=== PATIENT | female | born 1935 | race Caucasian/White ===

== ENCOUNTER 2016-11-08 17:57 | Emergency (ER) | payer MEDICARE, OTHER ==
--- NOTE | 2016-11-08 18:25 | ED.PDOC ---
History of Present Illness - General Chief Complaint: General Stated Complaint: rib and chest pain Time Seen by Provider: 11/08/16 18:22 Source: patient, RN notes reviewed, Vital Signs reviewed Exam Limitations: no limitations - History of Present Illness Initial Comments: patient stated that he had been having dull RUQ pain for 2 days radiating to right side of her back aggravated during coughing episode and deep breaths,no diaphoresis,no sob,no n/v,not aggravated by food intake. Timing/Duration: other - 2 days ago Severity: moderate Improving Factors: nothing Worsening Factors: nothing, movement, other - cugh and taking deep breaths Allergies/Adverse Reactions: Allergies NO KNOWN ALLERGY Allergy (Verified 10/20/15 17:17) Home Medications: Ambulatory Orders Levothyroxine Sodium [Synthroid] 50 mcg PO TENISHA-OTH-DAY 01/11/15 Levothyroxine Sodium [Synthroid] 75 mcg PO TENISHA-OTH-DAY 01/11/15 Zolpidem Tartrate [Ambien] 5 mg PO BEDTIME 01/11/15 Acyclovir [Zovirax] 400 mg PO BID 02/02/16 Dexamethasone 20 mg PO SUMOTUSA 02/02/16 Ondansetron [Zuplenz] 8 mg PO Q8H PRN 02/02/16 Sulfa/Trimeth 800/160 (Ds) Tab [Bactrim DS] 1 ea PO TUSA 02/02/16 Acetamin W/Cod #3 Tab [Tylenol w/CODEINE #3] 1 ea PO Q6H PRN #30 tab 02/03/16 Cyclobenzaprine HCl [Flexeril] 5 mg PO Q8HR PRN #15 tab 02/03/16 Review of Systems - Review of Systems Constitutional: States: no symptoms reported EENTM: States: no symptoms reported Respiratory: States: cough - non productive Cardiology: States: no symptoms reported Gastrointestinal/Abdominal: States: see HPI Genitourinary: States: other - recurrent uti Musculoskeletal: States: other - bone pain history of multiple myeloma Skin: States: no symptoms reported Neurological: States: no symptoms reported Endocrine: States: no symptoms reported Hematologic/Lymphatic: States: 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 Past Medical History (General) - Patient Medical History Hx Seizures: No Hx Stroke: No Hx Dementia: No Hx Asthma: No Hx of COPD: No Hx Cardiac Disorders: Yes - hx murmor Hx Congestive Heart Failure: No Hx Pacemaker: No Hx Hypertension: No Hx Thyroid Disease: Yes Hx Diabetes: No Hx Gastroesophageal Reflux: No Hx Renal Disease: No Hx Cancer: Yes - multiple myeloma Hx of HIV: No Hx Hepatitis C: No Hx MRSA: No Surgical History: appendectomy, other - hernia repair,vein stripping , shoulder - Vaccination History Hx Influenza Vaccination: Yes Hx Pneumococcal Vaccination: Yes - Social History Hx Tobacco Use: No Hx Alcohol Use: No Hx Substance Use: No Hx Substance Use Treatment: No Hx Depression: No Family Medical History - Family History Mother Family History: No Known Living Status: Hx Cardiac Disease: Yes - CAD-dad Hx Family Cancer: Yes - Brain-mom Sister Living Status: Hx Family Cancer: Yes - breast cancer Physical Exam - Physical Exam General Appearance: Alert, Comfortable, No apparent distress Ears, Nose, Throat: hearing grossly normal, normal ENT inspection, normal pharynx Neck: non-tender, full range of motion, supple, normal inspection Respiratory: chest non-tender, lungs clear, no respiratory distress, no accessory muscle use Cardiovascular/Chest: normal peripheral pulses, regular rate, rhythm, no edema, systolic murmur Peripheral Pulses: radial,right: 2+, radial,left: 2+ Gastrointestinal/Abdominal: normal bowel sounds, soft, tenderness - RUQ including lower rib cage Back Exam: normal inspection, no CVA tenderness, no vertebral tenderness Extremity: normal range of motion, non-tender, normal inspection Neurologic: alert, normal mood/affect, oriented x 3 Skin Exam: normal color, warm/dry, cyanosis Lymphatic: no adenopathy Progress - Progress Progress: 11/08/16 21:39 11/08/16 18:30 EKG STAT 11/08/16 19:55 Hold Metformin x 48Hrs [id number] Laboratory Results WBC 22.6 K/mm3 (4.8-10.8) H* 11/08/16 18:40 RBC 3.94 M/mm3 (4.20-5.40) L 11/08/16 18:40 Hgb 12.1 gm/dL (12.0-16.0) 11/08/16 18:40 Hct 37.3 % (36.0-47.0) 11/08/16 18:40 MCV 94.6 fl (81.0-99.0) 11/08/16 18:40 MCH 30.7 pg (27.0-31.0) 11/08/16 18:40 MCHC 32.4 g/dL (33.0-37.0) L 11/08/16 18:40 RDW 13.9 % (11.5-14.5) 11/08/16 18:40 Plt Count 183 K/mm3 (130-400) 11/08/16 18:40 MPV 8.6 fl (7.40-10.4) 11/08/16 18:40 Absolute Neuts (auto) Not Reportable 11/08/16 18:40 Absolute Lymphs (auto) Not Reportable 11/08/16 18:40 Absolute Monos (auto) Not Reportable 11/08/16 18:40 Absolute Eos (auto) Not Reportable 11/08/16 18:40 Neutrophils % Not Reportable 11/08/16 18:40 Neutrophils % (Manual) 93.0 % 11/08/16 18:40 Lymphocytes % Not Reportable 11/08/16 18:40 Lymphocytes % (Manual) 5.0 % 11/08/16 18:40 Monocytes % Not Reportable 11/08/16 18:40 Monocytes % (Manual) 2.0 % 11/08/16 18:40 Eosinophils % Not Reportable 11/08/16 18:40 Basophils % Not Reportable 11/08/16 18:40 Platelet Estimate Normal (NORMAL) 11/08/16 18:40 Normal RBC Morphology Normal rbc morph 11/08/16 18:40 PT 11.7 SECONDS (9.4-12.5) 11/08/16 18:40 INR 1.040 11/08/16 18:40 PTT (SP) 24.9 SECONDS (25.1-36.5) L 11/08/16 18:40 Sodium 139 mmol/L (135-145) 11/08/16 18:40 Potassium 3.9 mmol/L (3.6-5.0) 11/08/16 18:40 Chloride 106 mmol/L (101-111) 11/08/16 18:40 Carbon Dioxide 29 mmol/L (21-31) 11/08/16 18:40 Anion Gap 7.9 (12-18) L 11/08/16 18:40 BUN 20 mg/dL (7-18) H 11/08/16 18:40 Creatinine 0.80 mg/dL (0.6-1.3) 11/08/16 18:40 BUN/Creatinine Ratio 25.0 (10-20) H 11/08/16 18:40 Random Glucose 169 mg/dL (70-105) H 11/08/16 18:40 Serum Osmolality 284.1 mOsm/L (275-295) 11/08/16 18:40 Lactic Acid 1.5 mmol/L (0.5-2.2) 11/08/16 18:40 Calcium 8.9 mg/dL (8.4-10.2) 11/08/16 18:40 Magnesium 2.6 mg/dL (1.8-2.5) H 11/08/16 18:40 Total Bilirubin 0.5 mg/dL (0.2-1.0) 11/08/16 18:40 Direct Bilirubin < 0.1 mg/dL (0-0.2) 11/08/16 18:40 Indirect Bilirubin 0.4 mg/dL (0.2-0.8) 11/08/16 18:40 AST 25 IU/L (10-42) 11/08/16 18:40 ALT 21 IU/L (10-60) 11/08/16 18:40 Alkaline Phosphatase 36 IU/L (42-121) L 11/08/16 18:40 Creatine Kinase 64 IU/L (26-140) 11/08/16 18:40 CK-MB (CK-2) 3.5 ng/mL (0.0-4.4) 11/08/16 18:40 CK-MB (CK-2) % Not Reportable 11/08/16 18:40 Troponin I < 0.02 ng/mL (0.01-0.05) 11/08/16 18:40 Serum Total Protein 7.8 gm/dL (6.4-8.2) 11/08/16 18:40 Albumin 3.9 g/dl (3.2-5.5) 11/08/16 18:40 Globulin Cancelled 11/08/16 18:40 Albumin/Globulin Ratio Cancelled 11/08/16 18:40 Urine Color Yellow (Yellow) 11/08/16 19:35 Urine Appearance Clear (Clear) 11/08/16 19:35 Urine pH 6.0 (4.5-7.8) 11/08/16 19:35 Ur Specific [place] 1.015 (1.005-1.030) 11/08/16 19:35 Urine Protein Negative mg/dL 11/08/16 19:35 Urine Glucose (UA) Negative mg/dL (Negative) 11/08/16 19:35 Urine Ketones Negative mg/dL (NEGATIVE) 11/08/16 19:35 Urine Blood Negative (Negative) 11/08/16 19:35 Urine Nitrite Negative 11/08/16 19:35 Urine Bilirubin Negative (NEGATIVE) 11/08/16 19:35 Urine Urobilinogen 0.2 mg/dL (0.2-1.0) 11/08/16 19:35 Ur Leukocyte Esterase Trace (Negative) H 11/08/16 19:35 Urine RBC 0-1 /hpf 11/08/16 19:35 Urine WBC 3-5 /hpf H 11/08/16 19:35 Ur Epithelial Cells 1-3 /hpf 11/08/16 19:35 Urine Bacteria Rare 11/08/16 19:35 11/08/16 21:43 Discus with patient and family lab result and normal ct abd/pelvis needed to keep appointment with primary md sunday - Results/Orders Results/Orders: 11/08/16 18:30 EKG STAT 11/08/16 19:55 Hold Metformin x 48Hrs [id number] Laboratory Results WBC 22.6 K/mm3 (4.8-10.8) H* 11/08/16 18:40 RBC 3.94 M/mm3 (4.20-5.40) L 11/08/16 18:40 Hgb 12.1 gm/dL (12.0-16.0) 11/08/16 18:40 Hct 37.3 % (36.0-47.0) 11/08/16 18:40 MCV 94.6 fl (81.0-99.0) 11/08/16 18:40 MCH 30.7 pg (27.0-31.0) 11/08/16 18:40 MCHC 32.4 g/dL (33.0-37.0) L 11/08/16 18:40 RDW 13.9 % (11.5-14.5) 11/08/16 18:40 Plt Count 183 K/mm3 (130-400) 11/08/16 18:40 MPV 8.6 fl (7.40-10.4) 11/08/16 18:40 Absolute Neuts (auto) Not Reportable 11/08/16 18:40 Absolute Lymphs (auto) Not Reportable 11/08/16 18:40 Absolute Monos (auto) Not Reportable 11/08/16 18:40 Absolute Eos (auto) Not Reportable 11/08/16 18:40 Neutrophils % Not Reportable 11/08/16 18:40 Neutrophils % (Manual) 93.0 % 11/08/16 18:40 Lymphocytes % Not Reportable 11/08/16 18:40 Lymphocytes % (Manual) 5.0 % 11/08/16 18:40 Monocytes % Not Reportable 11/08/16 18:40 Monocytes % (Manual) 2.0 % 11/08/16 18:40 Eosinophils % Not Reportable 11/08/16 18:40 Basophils % Not Reportable 11/08/16 18:40 Platelet Estimate Normal (NORMAL) 11/08/16 18:40 Normal RBC Morphology Normal rbc morph 11/08/16 18:40 PT 11.7 SECONDS (9.4-12.5) 11/08/16 18:40 INR 1.040 11/08/16 18:40 PTT (SP) 24.9 SECONDS (25.1-36.5) L 11/08/16 18:40 Sodium 139 mmol/L (135-145) 11/08/16 18:40 Potassium 3.9 mmol/L (3.6-5.0) 11/08/16 18:40 Chloride 106 mmol/L (101-111) 11/08/16 18:40 Carbon Dioxide 29 mmol/L (21-31) 11/08/16 18:40 Anion Gap 7.9 (12-18) L 11/08/16 18:40 BUN 20 mg/dL (7-18) H 11/08/16 18:40 Creatinine 0.80 mg/dL (0.6-1.3) 11/08/16 18:40 BUN/Creatinine Ratio 25.0 (10-20) H 11/08/16 18:40 Random Glucose 169 mg/dL (70-105) H 11/08/16 18:40 Serum Osmolality 284.1 mOsm/L (275-295) 11/08/16 18:40 Lactic Acid 1.5 mmol/L (0.5-2.2) 11/08/16 18:40 Calcium 8.9 mg/dL (8.4-10.2) 11/08/16 18:40 Magnesium 2.6 mg/dL (1.8-2.5) H 11/08/16 18:40 Total Bilirubin 0.5 mg/dL (0.2-1.0) 11/08/16 18:40 Direct Bilirubin < 0.1 mg/dL (0-0.2) 11/08/16 18:40 Indirect Bilirubin 0.4 mg/dL (0.2-0.8) 11/08/16 18:40 AST 25 IU/L (10-42) 11/08/16 18:40 ALT 21 IU/L (10-60) 11/08/16 18:40 Alkaline Phosphatase 36 IU/L (42-121) L 11/08/16 18:40 Creatine Kinase 64 IU/L (26-140) 11/08/16 18:40 CK-MB (CK-2) 3.5 ng/mL (0.0-4.4) 11/08/16 18:40 CK-MB (CK-2) % Not Reportable 11/08/16 18:40 Troponin I < 0.02 ng/mL (0.01-0.05) 11/08/16 18:40 Serum Total Protein 7.8 gm/dL (6.4-8.2) 11/08/16 18:40 Albumin 3.9 g/dl (3.2-5.5) 11/08/16 18:40 Globulin Cancelled 11/08/16 18:40 Albumin/Globulin Ratio Cancelled 11/08/16 18:40 Urine Color Yellow (Yellow) 11/08/16 19:35 Urine Appearance Clear (Clear) 11/08/16 19:35 Urine pH 6.0 (4.5-7.8) 11/08/16 19:35 Ur Specific [place] 1.015 (1.005-1.030) 11/08/16 19:35 Urine Protein Negative mg/dL 11/08/16 19:35 Urine Glucose (UA) Negative mg/dL (Negative) 11/08/16 19:35 Urine Ketones Negative mg/dL (NEGATIVE) 11/08/16 19:35 Urine Blood Negative (Negative) 11/08/16 19:35 Urine Nitrite Negative 11/08/16 19:35 Urine Bilirubin Negative (NEGATIVE) 11/08/16 19:35 Urine Urobilinogen 0.2 mg/dL (0.2-1.0) 11/08/16 19:35 Ur Leukocyte Esterase Trace (Negative) H 11/08/16 19:35 Urine RBC 0-1 /hpf 11/08/16 19:35 Urine WBC 3-5 /hpf H 11/08/16 19:35 Ur Epithelial Cells 1-3 /hpf 11/08/16 19:35 Urine Bacteria Rare 11/08/16 19:35 - EKG/XRAY/CT CT: abd/pelvis w/contrast no acute pathology Departure - Departure Clinical Impression: Abdominal pain, RUQ, History of multiple myeloma, Neutrophilic leukocytosis Time of Disposition: 21:35 Disposition: Discharge to Home or Self Care Condition: Good Departure Forms: ED Discharge - Pt. Copy, Patient Portal Self Enrollment Instructions: DI for Abdominal Pain-Adult Referrals: Aleksey Contreras MD [Primary Care Provider] - 1-2 Weeks Home Medications: Ambulatory Orders Levothyroxine Sodium [Synthroid] 50 mcg PO TENISHA-OTH-DAY 01/11/15 Levothyroxine Sodium [Synthroid] 75 mcg PO TENISHA-OTH-DAY 01/11/15 Zolpidem Tartrate [Ambien] 5 mg PO BEDTIME 01/11/15 Acyclovir [Zovirax] 400 mg PO BID 02/02/16 Dexamethasone 20 mg PO SUMOTUSA 02/02/16 Ondansetron [Zuplenz] 8 mg PO Q8H PRN 02/02/16 Sulfa/Trimeth 800/160 (Ds) Tab [Bactrim DS] 1 ea PO TUSA 02/02/16 Acetamin W/Cod #3 Tab [Tylenol w/CODEINE #3] 1 ea PO Q6H PRN #30 tab 02/03/16 Cyclobenzaprine HCl [Flexeril] 5 mg PO Q8HR PRN #15 tab 02/03/16 Additional Instructions: RETURN TO EMERGENCY ROOM NEEDED;KEEP APPOINTMENT WITH PRIMARY MD THIS COMING SUNDAY
--- NOTE | 2016-11-08 18:56 | RAD ---
EXAM DESCRIPTION: X-RAY CHEST- One View CLINICAL HISTORY: Chest pain COMPARISON: 02/10/2016 TECHNIQUE: Single view of the chest. FINDINGS: There are no discrete air space infiltrates, pneumothoraces or pleural effusions. The pulmonary vascularity is normal. The cardiomediastinal silhouette is unremarkable. IMPRESSION: There are no acute lung parenchymal findings. Electronically signed by: Seth Pete MD 11/08/2016 18:54
--- NOTE | 2016-11-08 20:58 | CT ---
EXAM DESCRIPTION: CT ABDOMEN PELVIS WITH IV CONTRAST CLINICAL HISTORY: 81-year-old female with complaint of upper abdomen and lower rib pain. COMPARISON: None. TECHNIQUE: CT of the abdomen and pelvis was performed following intravenous administration of contrast. Oral contrast was not administered. Multiplanar reformatted images were provided. FINDINGS: Examination findings are limited secondary to delayed phase only of CT examination limiting assessment for solid organ pathology. Contrast opacifies the bilateral renal collecting system. Chest: Evaluation through the lung bases reveals no focal opacity, pleural effusion or pneumothorax. Heart size is within normal limits. No pericardial effusion. Abdomen and pelvis: The liver, gallbladder, pancreas, spleen, bilateral kidneys and bilateral adrenal glands are within normal limits. Coarse calcification within the inferior pole of the left kidney and superior pole, a nonspecific finding which may reflect sequela of prior injury. The vessels reveal mild atherosclerotic change otherwise within normal limits of caliber. Patency cannot be determined given lack of contrast opacification of the vessels. No abdominopelvic lymph nodes are noted to be pathologically enlarged by CT measurement criteria. The bowel is within normal limits with large volume of fecal debris present throughout the large bowel. There is no abnormal bowel wall thickness or bowel dilation. No free air. No free abdominopelvic fluid collections. The appendix is within normal limits. The bladder is diffusely enlarged. The osseous structures reveal diffuse demineralization and degenerative change. Callus formation of the left/superior inferior pubic ramus compatible with sequela of prior trauma and nonunion. IMPRESSION: 1. No specific acute intra-abdominal findings are noted to suggest etiology of the patient's abdominal pain. 2. Delayed phase only imaging performed limiting assessment for solid organ pathology. 3. Large volume of fecal debris present throughout the large bowel raising the question of fecal stasis, constipation. Electronically signed by: Robyn Mcconnell MD 11/08/2016 20:55
[2016-11-08] MEDS ORDERED: fentaNYL CITRATE INJ 50 MCG/ML AMP IV ONE (21:26)
[2016-11-08 22:14] VITALS: BP 143/70; TEMP 97.8; O2SAT 97
== END 2016-11-08 22:14 | disposition home or self-care (01) ==
LOC: ER 17:57
DX: R10.11 Right upper quadrant pain (principal); D72.828 Other elevated white blood cell count; C90.00 Multiple myeloma not having achieved remission; E07.9 Disorder of thyroid, unspecified; Z80.8 Family history of malignant neoplasm of other organs or systems; Z80.3 Family history of malignant neoplasm of breast; Z82.49 Family history of ischemic heart disease and other diseases of the circulatory system; Z79.899 Other long term (current) drug therapy

== ENCOUNTER → 2016-11-23 | Outpatient (CLI) | payer MEDICARE | LOC: BFHH 13:07 | PROVIDERS: ATTEND Family Medicine | DX: E03.9 Hypothyroidism, unspecified (principal) ==

== ENCOUNTER 2017-01-19 23:04 | Emergency (ER) | payer MEDICARE ==
[2017-01-20] MEDS ORDERED: SODIUM CHLORIDE 0.9% 1000ML 1,000 ML IVS ONE (01:21)
--- NOTE | 2017-01-20 01:24 | RAD ---
Clinical History : fever , MAIN Exam : PA and lateral views of the chest 01/20/2017 12:46 AM CDT Comparisons : CT chest with contrast October 20, 2015 Portable AP view of the chest November 08, 2016 Findings : The lungs are clear without focal consolidation or pleural effusion. The heart is normal in size. The mediastinal contours are normal in appearance. The thoracic spine is age appropriate. The shoulders are unremarkable. Limited evaluation of the upper abdomen demonstrates no gross abnormalities. Impression: No acute cardiopulmonary disease (stable appearing chest). Electronically signed by: Anibal Olsen MD 01/20/2017 1:23 AM CDT
[2017-01-20] MEDS ORDERED: levoFLOXacin 500MG IV 500 MG in PREMIX BAG 1 BAG IVPB ONE (01:30)
[2017-01-20] MEDS ORDERED: levoFLOXacin 500MG IV 100 ML IVPB ONE (01:37)
--- NOTE | 2017-01-20 01:51 | ED.PDOC ---
History of Present Illness - General Chief Complaint: Problem Stated Complaint: fevers, minimal, confusion Time Seen by Provider: 01/20/17 00:41 Source: patient, family Exam Limitations: other - dementia of patient - History of Present Illness Initial Comments: Patient presents with fever since this afternoon. She has end state multiple myeloma diagnosed 9 months ago with last chemtx today. She has a hx of chronic UTI so her daughter thought she may have that. She has not been urinating much. The patient has no complaints. Denies any pain. No dyspnea has been noticed by either of them. No cough. Her daughter thinks that this is the first time she has had a fever since her diagnosis. Her mental status declined abruptly today. This morning, the patient was at baseline and was "sharp" and not confused. No other complaints or information available. Timing/Duration: 4-6 hours Severity: moderate Improving Factors: nothing Worsening Factors: nothing Associated Symptoms: denies symptoms Allergies/Adverse Reactions: Allergies NO KNOWN ALLERGY Allergy (Verified 10/20/15 17:17) Home Medications: Ambulatory Orders Levothyroxine Sodium [Synthroid] 50 mcg PO TENISHA-OTH-DAY 01/11/15 Levothyroxine Sodium [Synthroid] 75 mcg PO TENISHA-OTH-DAY 01/11/15 Zolpidem Tartrate [Ambien] 5 mg PO BEDTIME 01/11/15 Acyclovir [Zovirax] 400 mg PO BID 02/02/16 Dexamethasone 20 mg PO SUMOTUSA 02/02/16 Ondansetron [Zuplenz] 8 mg PO Q8H PRN 02/02/16 Sulfa/Trimeth 800/160 (Ds) Tab [Bactrim DS] 1 ea PO TUSA 02/02/16 Acetamin W/Cod #3 Tab [Tylenol w/CODEINE #3] 1 ea PO Q6H PRN #30 tab 02/03/16 Cyclobenzaprine HCl [Flexeril] 5 mg PO Q8HR PRN #15 tab 02/03/16 Review of Systems - Review of Systems Constitutional: States: see HPI EENTM: States: no symptoms reported Respiratory: States: no symptoms reported Cardiology: States: no symptoms reported Gastrointestinal/Abdominal: States: no symptoms reported Genitourinary: States: no symptoms reported Musculoskeletal: States: see HPI Skin: States: no symptoms reported Neurological: States: no symptoms reported Endocrine: States: no symptoms reported Hematologic/Lymphatic: States: see HPI Past Medical History (General) - Patient Medical History Hx Seizures: No Hx Stroke: No Hx Dementia: No Hx Asthma: No Hx of COPD: No Hx Cardiac Disorders: Yes - hx murmor Hx Congestive Heart Failure: No Hx Pacemaker: No Hx Hypertension: No Hx Thyroid Disease: Yes Hx Diabetes: No Hx Gastroesophageal Reflux: No Hx Renal Disease: No Hx Cancer: Yes - multiple myeloma Hx of HIV: No Hx Hepatitis C: No Hx MRSA: No Surgical History: other - Vaccination History Hx Influenza Vaccination: Yes Hx Pneumococcal Vaccination: Yes - Social History Hx Tobacco Use: No Hx Alcohol Use: No Hx Substance Use: No Hx Substance Use Treatment: No Hx Depression: No Family Medical History - Family History Mother Family History: No Known Living Status: Hx Cardiac Disease: Yes - CAD-dad Hx Family Cancer: Yes - Brain-mom Sister Living Status: Hx Family Cancer: Yes - breast cancer Physical Exam - Physical Exam General Appearance: Other - confused Ears, Nose, Throat: normal ENT inspection Neck: non-tender, full range of motion, supple Respiratory: lungs clear Cardiovascular/Chest: normal peripheral pulses, tachycardia Gastrointestinal/Abdominal: normal bowel sounds, non tender, soft Back Exam: normal inspection, no CVA tenderness Extremity: no pedal edema Neurologic: no motor/sensory deficits, other - oriented to name only Skin Exam: normal color Lymphatic: no adenopathy Progress - Progress Progress: 01/20/17 01:53 wbc wnl but that would be as expected with her multiple myeloma. Decreased lymphocyte count. differential 87% neutrophils. UA unremarkable. CXR unremarkable. Blood cultures drawn. Levaquin 500 mg IV x one started. NS one liter IV bolus x one. Second liter to start en route. Lactic acid 1.5. Patient accepted at [facility] where her oncologist, Dr. Davis practices. 01/20/17 01:54 Departure - Departure Clinical Impression: Fever with chills, Multiple myeloma Disposition: Transfer to Hospital Condition: Fair Departure Forms: ED Discharge - Pt. Copy, Patient Portal Self Enrollment Diet: other - as per hospitalist Activity: other - as per hospitalist Home Medications: Ambulatory Orders Levothyroxine Sodium [Synthroid] 50 mcg PO TENISHA-OTH-DAY 01/11/15 Levothyroxine Sodium [Synthroid] 75 mcg PO TENISHA-OTH-DAY 01/11/15 Zolpidem Tartrate [Ambien] 5 mg PO BEDTIME 01/11/15 Acyclovir [Zovirax] 400 mg PO BID 02/02/16 Dexamethasone 20 mg PO SUMOTUSA 02/02/16 Ondansetron [Zuplenz] 8 mg PO Q8H PRN 02/02/16 Sulfa/Trimeth 800/160 (Ds) Tab [Bactrim DS] 1 ea PO TUSA 02/02/16 Acetamin W/Cod #3 Tab [Tylenol w/CODEINE #3] 1 ea PO Q6H PRN #30 tab 02/03/16 Cyclobenzaprine HCl [Flexeril] 5 mg PO Q8HR PRN #15 tab 02/03/16
[2017-01-20 01:59] VITALS: BP 122/70; TEMP 99.7; O2SAT 94
== END 2017-01-20 02:20 | disposition short-term general hospital (02) ==
LOC: ER 23:04
DX: C90.00 Multiple myeloma not having achieved remission (principal); R50.81 Fever presenting with conditions classified elsewhere; E07.9 Disorder of thyroid, unspecified; R01.1 Cardiac murmur, unspecified; Z87.440 Personal history of urinary (tract) infections; Z79.899 Other long term (current) drug therapy

== ENCOUNTER → 2017-04-19 | Outpatient (CLI) | payer MEDICARE | END | disposition home or self-care (01) | LOC: BFHH 11:38 | PROVIDERS: ATTEND Internal Medicine Hematology & Oncology | DX: C90.00 Multiple myeloma not having achieved remission (principal); E09.9 Drug or chemical induced diabetes mellitus without complications; D69.6 Thrombocytopenia, unspecified ==

== ENCOUNTER → 2017-07-19 | Outpatient (CLI) | payer MEDICARE | END | disposition home or self-care (01) | LOC: GMAJ 16:40 | PROVIDERS: ATTEND Family Medicine | DX: E03.9 Hypothyroidism, unspecified (principal) ==

== ENCOUNTER → 2018-08-26 | Outpatient (CLI) | payer MEDICARE | LOC: GMAJ 14:51 | PROVIDERS: ATTEND Family Medicine | DX: E03.9 Hypothyroidism, unspecified (principal) ==

== ENCOUNTER 2018-12-10 21:14 | Inpatient (IN) | payer MEDICARE ==
--- NOTE | 2018-12-10 22:16 | RAD ---
EXAM DESCRIPTION: Chest,1 View CLINICAL HISTORY: 83 years Female, cough, congestion Comparison: 01/20/2017 and 11/08/2016 FINDINGS: Single AP view of the chest Cardiomediastinal silhouette is within normal limits. No focal lung consolidation. No pleural effusion. No pneumothorax. Again noted, right humeral suture anchor. IMPRESSION: Negative for lung consolidate. Electronically signed by: Nelia Reynolds MD 12/10/2018 10:14 PM TONG SETTER
[2018-12-10] MEDS ORDERED: ACETAMINOPHEN 500 MG TAB PO ONE (23:32)
--- NOTE | 2018-12-11 00:27 | ED.PDOC ---
History of Present Illness - General Chief Complaint: Respiratory Problem Stated Complaint: fever, cough, congestion, altered mental Time Seen by Provider: 12/10/18 21:29 Source: patient, family Exam Limitations: no limitations - History of Present Illness Comments: 3 D H/O FEVERS, COUGH, CONGESTION. AMS TODAY. AT BASELINE, THE PT DRIVES HERSELF AND MAKES LUCID CONVERSATION. Timing/Duration: getting worse Cough Quality/Degree: mild Possible Cause: illness exposure Improving Factors: nothing Worsening Factors: movement Associated Symptoms: cough, fever/chills Respiratory Risk Factors: exposure to illness Allergies/Adverse Reactions: Allergies NO KNOWN ALLERGY Allergy (Verified 12/11/18 01:02) Home Medications: Ambulatory Orders Levothyroxine Sodium [Synthroid] 50 mcg PO TENISHA-OTH-DAY 01/11/15 Levothyroxine Sodium [Synthroid] 75 mcg PO TENISHA-OTH-DAY 01/11/15 Zolpidem Tartrate [Ambien] 5 mg PO BEDTIME 01/11/15 Acyclovir [Zovirax] 400 mg PO BID 02/02/16 Dexamethasone 20 mg PO SUMOTUSA 02/02/16 Ondansetron [Zuplenz] 8 mg PO Q8H PRN 02/02/16 Sulfa/Trimeth 800/160 (Ds) Tab [Bactrim DS] 1 ea PO TUSA 02/02/16 Acetamin W/Cod #3 Tab [Tylenol w/CODEINE #3] 1 ea PO Q6H PRN #30 tab 02/03/16 Cyclobenzaprine HCl [Flexeril] 5 mg PO Q8HR PRN #15 tab 02/03/16 Review of Systems - Review of Systems Constitutional: States: fever, malaise, weakness EENTM: Denies: ear pain, nose congestion, throat pain Respiratory: States: cough. Denies: short of breath, wheezing Cardiology: Denies: chest pain, palpitations Gastrointestinal/Abdominal: Denies: abdominal pain, nausea Genitourinary: Denies: dysuria, frequency Musculoskeletal: Denies: back pain, joint pain, muscle pain Skin: States: no symptoms reported Neurological: States: other - AMS PER FAMILY. NO NECK ACHE. . Denies: headache Endocrine: States: no symptoms reported Hematologic/Lymphatic: States: no symptoms reported All other Systems: Reviewed and Negative Past Medical History (General) - Patient Medical History Hx Seizures: No Hx Stroke: No Hx Dementia: No Hx Asthma: No Hx of COPD: No Hx Cardiac Disorders: Yes - hx murmor Hx Congestive Heart Failure: No Hx Pacemaker: No Hx Hypertension: No Hx Thyroid Disease: Yes Hx Diabetes: No Hx Gastroesophageal Reflux: No Hx Renal Disease: No Hx Cancer: Yes - multiple myeloma Hx of HIV: No Hx Hepatitis C: No Hx MRSA: No - Vaccination History Hx Influenza Vaccination: Yes Hx Pneumococcal Vaccination: Yes - Social History Hx Tobacco Use: No Hx Alcohol Use: No Hx Substance Use: No Hx Substance Use Treatment: No Hx Depression: No Family Medical History - Family History Mother Family History: No Known Living Status: Hx Cardiac Disease: Yes - CAD-dad Hx Family Cancer: Yes - Brain-mom Sister Living Status: Hx Family Cancer: Yes - breast cancer Physical Exam - Physical Exam General Appearance: Alert, Frail Eye Exam: bilateral normal ENT Exam: normal ENT inspection, hearing grossly normal, TMs normal, pharynx normal Neck: non-tender, full range of motion, supple, normal inspection, trachea midline Respiratory: chest non-tender, no respiratory distress, no accessory muscle use, rhonchi - VERY FAINT Cardiovascular/Chest: no edema, no gallop, no JVD, no murmur, other - REGULAR S1S2, TACHYCARDIC Gastrointestinal/Abdominal: normal bowel sounds, non tender, soft, no organomegaly Extremity: normal range of motion, normal inspection, no pedal edema, no calf tenderness Neurologic: accounting assistant II-XII nml as tested, no motor/sensory deficits, normal mood/affect, other - AWAKE. O X 1 (ONLY TO LOCATION) Skin Exam: normal color, warm/dry Lymphatic: no adenopathy Progress - Progress Progress: 12/11/18 01:22 ACUTE AMS FEBRILE COUGH/CONGESTION HYPOXIA (88% RA, 96% 4LNC) CXR NEG. CMP NEG. BNP NEB. UA NEG. BCX PENDING. FLU NEG BUT 6 OTHER FAMILY MEMBERS POS. CBC WBC 11.6, NEUTS HIGH. FAINT RONCHI. TEMP 102.8. SATS LOW (NO H/O COPD OR SMOKING) I DO NOT HAVE A CLEAR RESPIRATORY SOURCE BUT IT IS A RESPIRATORY IFXN. POSSIBLY VIRAL BUT WILL COVER FOR CAP WITH ROCEPHIN AND AZITHRO. LIKELY FALSE NEG ON FLU WITH 6 FAMILY POS, THUS WILL COVER WITH TAMIFLU. GIVEN HER HYPOXIA AND ADVANCED AGE, SHE IS NOT SAFE FOR DC AND NEEDS ADMISSION. 12/11/18 01:26 I D/W [facility], HOSPITALIST, WHO ACCEPTED ADMISSION. THANK YOU [facility] FOR ACCEPTING CARE OF THIS PT. 12/11/18 01:28 Departure - Departure Clinical Impression: Lower respiratory infection (e.g., bronchitis, pneumonia, pneumonitis, pulmonitis), Febrile illness, acute, Cough, Hypoxia, Neutrophilic leukocytosis, Tachycardia with heart rate 100-120 beats per minute Altered mental status Qualifiers: Altered mental status type: delirium Qualified Code(s): R41.0 - Disorientation, unspecified Disposition: Admit Patient Condition: Fair Departure Forms: ED Discharge - Pt. Copy, Patient Portal Self Enrollment Referrals: Aleksey Contreras MD [Primary Care Provider] - 1-2 Weeks Home Medications: Ambulatory Orders Levothyroxine Sodium [Synthroid] 50 mcg PO TENISHA-OTH-DAY 01/11/15 Levothyroxine Sodium [Synthroid] 75 mcg PO TENISHA-OTH-DAY 01/11/15 Zolpidem Tartrate [Ambien] 5 mg PO BEDTIME 01/11/15 Acyclovir [Zovirax] 400 mg PO BID 02/02/16 Dexamethasone 20 mg PO SUMOTUSA 02/02/16 Ondansetron [Zuplenz] 8 mg PO Q8H PRN 02/02/16 Sulfa/Trimeth 800/160 (Ds) Tab [Bactrim DS] 1 ea PO TUSA 02/02/16 Acetamin W/Cod #3 Tab [Tylenol w/CODEINE #3] 1 ea PO Q6H PRN #30 tab 02/03/16 Cyclobenzaprine HCl [Flexeril] 5 mg PO Q8HR PRN #15 tab 02/03/16 Decision To Admit - Decistion To Admit Decision to Admit Reason: Admit from ER Decision to Admit Date: 12/11/18 Decision to Admit Time: 01:31
[2018-12-11] MEDS ORDERED: AZITHROMYCIN IV 500 MG in SODIUM CHLORIDE 0.9% 250ML 250 ML IVPB ONE (00:51)
[2018-12-11] MEDS ORDERED: cefTRIAXone SODIUM 1 GM in SODIUM CHL 0.9% 50ML MIN-BAG+ 50 ML IVPB ONE (00:51)
[2018-12-11] MEDS ORDERED: OSELTAMIVIR 75 MG CAP PO ONE (00:52)
[2018-12-11] MEDS ORDERED: cefTRIAXone SODIUM 1 GM VIAL ONE (01:26)
[2018-12-11] MEDS ORDERED: AZITHROMYCIN IV 500 MG VIAL IVPB ONE (01:26)
[2018-12-11] MEDS ORDERED: SODIUM CHL 0.9% 50ML MIN-BAG+ 50 ML IVPB ONE (01:27)
[2018-12-11] MEDS ORDERED: SODIUM CHLORIDE 0.9% 250ML 250 ML ONE (01:27)
--- NOTE | 2018-12-11 01:41 | HP ---
SUPERVISING PHYSICIAN: Jonah Lopez MD CHIEF COMPLAINT: Fever, confusion. HISTORY OF PRESENT ILLNESS: Ms. Parham is an 83-year-old female patient who presented to the Emergency Room with her family members who reported she has been having fevers on and off for the last 3 days including cough and congestion that she notes has become purulent in nature. On the date of admission to the ER, the patient was having some acute mental status changes from her baseline. When the patient is at baseline, she actually does drive herself and has no decreased mental capacity. She notes that about a week ago on Sunday, she started having fever and several family members had tested positive for flu. She was not seen, but treated [id number] and symptoms resolved until this past Sunday when she started feeling a little worse and progressively on Sunday to today when the patient started having acute mental status changes and noted to have a fever. She had a workup in the Emergency Room. CBC showed a mild leukocytosis with a left shift. Chemistry was within normal limits. Urinalysis showed no evidence of a urinary tract infection. Vital signs in the Emergency Room did show she was running a fever of 102.8 initially on presentation. She was maintaining O2 saturations on 2 liters nasal cannula at 93%. Chest x-ray per radiologic interpretation was without any consolidative processes. The patient does have a history of multiple myeloma that is currently in remission. Given that she does have immunocompromising comorbidities including multiple myeloma and the fact that she has been previously around family members with the patient flu, a flu swab was completed and initially found to be negative for A and B by PCR. Given the patient's comorbidities, high temperature and flu-like illness, there was a concern that the patient was developing influenza pneumonia or a possibly a secondary bacterial pneumonia process from previous upper respiratory infection. Dr. Bright, the Emergency Room physician, requested the patient be admitted for further treatment and evaluation. She was admitted in stable condition. PAST MEDICAL HISTORY: 1. Multiple myeloma diagnosed in 2016, followed by Dr. Negron, apparently in remission. 2. Hypothyroidism. 3. Chronic anemia. 4. Osteoporosis. 5. Chronic insomnia. 6. Dementia. 7. Peripheral neuropathy. PAST SURGICAL HISTORY: 1. Carpal tunnel release. 2. Tubal ligation. 3. Right shoulder surgery. 4. Breast biopsy. 5. Appendectomy. 6. Bilateral cataract extraction. CURRENT MEDICATIONS: 1. Bactrim DS 800/160 1 tablet every Sunday and Sunday 2. Synthroid 75 mcg daily. 3. Dexamethasone 8 mg every Sunday. 4. Acyclovir 400 mg b.i.d. 5. Tylenol No. 3, 1 q.6h. p.r.n. 6. Cymbalta 20 mg at bedtime. 7. Cilium 500, 0.52 grams b.i.d. 8. Morphine sulfate 30 mg p.o. q.2h. as needed. 9. Gabapentin 030 mg b.i.d. ALLERGIES: NO KNOWN DRUG ALLERGIES. FAMILY HISTORY: Noncontributory. SOCIAL HISTORY: She denies any tobacco, illicit drug or alcohol usage. The patient does live in [place]. She is . REVIEW OF SYSTEMS: CONSTITUTIONAL: Positive for fever, general malaise. Denies weight loss. HEENT: Positive for nasal congestion. Negative for earaches, sore throats. RESPIRATORY: Positive for cough, increasing productive sputum and shortness of breath. No wheezing. CARDIOVASCULAR: Negative for chest pain, palpitations or syncopal episodes. GASTROINTESTINAL: Negative for nausea or vomiting, diarrhea, constipation or abdominal pain. GENITOURINARY: Negative for dysuria, hematuria, polyuria. NEUROLOGIC: Negative for seizures, ataxia, syncopal episodes or other neurologic deficits. HEMATOLOGICAL: Positive for history of multiple myeloma apparently in remission. PHYSICAL EXAMINATION: VITAL SIGNS: Temperature 102.8. Pulse 119. Blood pressure 148/79. Respirations 22. Saturation 93% on nasal cannula at 4 liters. Admission weight 55.3 kg. GENERAL: On admission to the Medical/Surgical Floor, the patient is in apparent distress. She is alert and oriented and back to baseline levels of mentation per family. HEENT: Tympanic membranes clear bilaterally. Oropharynx is pink. Nares bilaterally were notably congested with clear nasal drainage. NECK: Supple, nontender with full range of motion. No jugular venous distention noted. RESPIRATORY: Lungs fairly clear except for notable rhonchi heard bilaterally, more so on the left than the right. No wheezing. CARDIOVASCULAR: Regular rate and rhythm without any appreciable murmurs, gallops, or rubs. ABDOMEN: Soft, nontender. Positive bowel sounds. EXTREMITIES: There is no cyanosis, clubbing or edema. NEUROLOGIC: The patient is alert and oriented times three. Facial features are symmetrical. Extraocular movements are within normal limits. Cranial nerves II- XII are grossly intact. LABORATORY: White count showed leukocytosis of 11,600, hemoglobin 14.3, hematocrit 43.7, platelet count 139,000. Differential did show a left shift. Chemistry showed normal electrolytes. BUN 12, creatinine 0.76. Liver functions all within normal limits. Albumin 3.7, chloride 3.5, serum total protein 7.2. Urinalysis was within normal limits. MICROBIOLOGY: Sputum culture pending. Blood cultures pending. Influenza A and B by PCR was negative. RADIOLOGY: Initial chest x-ray, single view, was without any acute findings per radiologic interpretation. No consolidative processes noted. ASSESSMENT: 1. Influenza like illness with developing influenza pneumonia, probable secondary bacterial pneumonia with concerns for Streptococcus pneumoniae. 2. Febrile illness, secondary to #1. 3. Leukocytosis, secondary to #1. 4. History of multiple myeloma, diagnosed in 2016, currently in remission, followed by Dr. Negron on corticosteroid therapy. 5. Osteoporosis. 6. Chronic insomnia. 7. Dementia. 8. Chronic peripheral neuropathies. PLAN: The patient is going to be admitted to the Medical/Surgical Floor for ongoing treatment of upper respiratory infection with concerns for developing influenza pneumonia and more likely bacterial secondary infection including pneumococcal pneumonia. She will be started on antiviral with Tamiflu as well as antibiotics of Rocephin and azithromycin. She will be on aggressive pulmonary hygiene with q.i.d. DuoNeb treatments. We will put her on DVT prophylaxis as per protocol. We will repeat labs and chest in the morning. We will anticipate her length of stay to be at least 2 to 3 days. Given the patient's advanced age and underlying comorbidities including multiple myeloma, she certainly is in an immunocompromised state and has recently been exposed to flu and is at risk for further complications. She will likely need aggressive care. Until she can transition to outpatient management, we will continue to monitor and treat as needed. #[id number] [facility]
[2018-12-11] MEDS ORDERED: MAGNESIUM HYDROXIDE 30 ML UD PO PRN (01:53)
[2018-12-11] MEDS ORDERED: ONDANSETRON INJ 4 MG/2 ML VIAL IV PRN (01:53)
[2018-12-11] MEDS ORDERED: ACETAMINOPHEN 325 MG TAB PO PRN (01:53)
[2018-12-11] MEDS ORDERED: ALBUTEROL SULFATE 2.5 MG/3 ML VIAL NEB PRN (01:53)
[2018-12-11] MEDS ORDERED: IV SET AND CAP CHANGE INJ INJ SCH (02:00)
[2018-12-11] MEDS: KCL 20MEQ/D5 1/2NS 1,000 ML IVS PRN ×2 (02:31→04:10)
[2018-12-11] MEDS: PANTOPRAZOLE SODIUM IV 40 MG VIAL IV SCH (06:35)
[2018-12-11] MEDS: IPRATROPIUM/ALBUTEROL 3 ML VIAL INH SCH ×4 (07:35→19:51)
[2018-12-11] MEDS: OSELTAMIVIR 75 MG CAP PO SCH ×2 (08:38→20:44)
[2018-12-11] MEDS ORDERED: DEXAMETHASONE 4 MG TAB PO SCH (11:30)
--- NOTE | 2018-12-11 13:48 | RAD ---
Study: Frontal and Lateral Radiographs of the Chest. Indication: Influenza pneumonia Comparison: December 10, 2018 Impression: Heart size normal. Atherosclerosis aorta. Emphysema. Subtle opacity in the peripheral aspect of the left mid to lower lung noted and is slightly more prominent than on the prior. This could reflect developing pneumonia. Short term follow-up recommended. Tiny left pleural effusion. No pneumothorax. Suture anchors right humeral head. Osteopenia. If this is a new finding, DEXA scan recommended as well as evaluation for possible osteoporosis treatment. Electronically signed by: Lizandro Burleson MD 12/11/2018 1:46 PM [employer]
[2018-12-11] MEDS: GABAPENTIN 300 MG CAP PO SCH ×2 (16:55→20:44)
[2018-12-11] MEDS ORDERED: LEVOTHYROXINE SODIUM 0.075 MG TAB ONE (19:23)
[2018-12-11] MEDS: ENOXAPARIN SODIUM 40 MG/0.4 ML SYG SUBCU SCH (20:43)
[2018-12-11] MEDS: SODIUM CHLORIDE 0.9% (FLUSH) 10 ML SYG IV PRN (20:43)
[2018-12-11] MEDS: PSYLLIUM 0.52 GM PO SCH (20:44)
[2018-12-11] MEDS: DULoxetine HCL 20 MG CAP PO SCH (20:44)
[2018-12-11] MEDS: ACYCLOVIR 200 MG CAP PO SCH (20:44)
[2018-12-12] MEDS: PANTOPRAZOLE SODIUM IV 40 MG VIAL IV SCH (06:04)
[2018-12-12] MEDS: LEVOTHYROXINE SODIUM 0.075 MG TAB PO SCH (06:04)
--- NOTE | 2018-12-12 07:33 | RAD ---
EXAM DESCRIPTION: Chest,2 Views CLINICAL HISTORY:83 years Female, Pneumonia Comparison: December 11, 2018 FINDINGS: No focal lung consolidation. No pleural effusion. No pneumothorax. Cardiac and mediastinal silhouette is unremarkable. No acute osseous abnormality. Soft tissues are unremarkable. IMPRESSION: No acute findings. No focal lung consolidation. Electronically signed by: Rachid Galindo MD 12/12/2018 7:31 AM [employer]ICE [employer]IDENT
[2018-12-12] MEDS ORDERED: SODIUM CHLORIDE 0.9% 250ML 250 ML ONE (07:37)
[2018-12-12] MEDS ORDERED: SODIUM CHL 0.9% 50ML MIN-BAG+ 50 ML IVPB ONE (07:37)
[2018-12-12] MEDS ORDERED: cefTRIAXone SODIUM 1 GM VIAL ONE (07:38)
[2018-12-12] MEDS ORDERED: AZITHROMYCIN IV 500 MG VIAL IVPB ONE (07:38)
[2018-12-12] MEDS: IPRATROPIUM/ALBUTEROL 3 ML VIAL INH SCH ×4 (08:33→20:30)
[2018-12-12] MEDS: ACYCLOVIR 200 MG CAP PO SCH ×2 (08:50→20:31)
[2018-12-12] MEDS: PSYLLIUM 0.52 GM PO SCH ×2 (08:51→20:32)
[2018-12-12] MEDS: AZITHROMYCIN IV 500 MG in SODIUM CHLORIDE 0.9% 250ML 250 ML IVPB SCH (08:51)
[2018-12-12] MEDS: SODIUM CHLORIDE 0.9% (FLUSH) 10 ML SYG IV PRN ×3 (08:51→20:32)
[2018-12-12] MEDS: OSELTAMIVIR 75 MG CAP PO SCH ×2 (08:52→20:31)
[2018-12-12] MEDS: cefTRIAXone SODIUM 1 GM in SODIUM CHL 0.9% 50ML MIN-BAG+ 50 ML IVPB SCH (11:10)
[2018-12-12] MEDS ORDERED: LOPERAMIDE CAP 2 MG CAP PO PRN (15:06)
[2018-12-12] MEDS ORDERED: metroNIDAZOLE IV PREMIX 500MG 500 MG in PREMIX BAG 1 BAG IVPB SCH (16:00)
[2018-12-12] MEDS: BIFIDOBACTERIUM INFANTIS 4 MG CAP PO SCH (16:42)
[2018-12-12] MEDS: GABAPENTIN 300 MG CAP PO SCH ×2 (16:43→20:31)
[2018-12-12] MEDS: DULoxetine HCL 20 MG CAP PO SCH (20:31)
[2018-12-12] MEDS: ENOXAPARIN SODIUM 40 MG/0.4 ML SYG SUBCU SCH (20:32)
--- NOTE | 2018-12-12 20:46 | PN ---
DATE: 12/12/18 SUPERVISING PHYSICIAN: Jonah Lopez M.D. SUBJECTIVE: The patient notes that she feels a little bit better. She still has a cough which is still productive, but she has not run a fever for 24 hours since admission. She is having a little diarrhea which is common for her, so will give her a little Lomotil. She is without any further complaints. OBJECTIVE: VITAL SIGNS: temperature 98.2, pulse 82, blood pressure 115/69, respirations 18, satting 96% on room air. I's and O's show a positive balance of 490 with 1490 in, 1000 out. She has had several bowel movements. Weight is 56.0 kg. GENERAL: The patient is resting comfortably. She is in no acute distress. She is alert. CHEST: Lung sounds today are much improved, just diminished towards the bases with no rhonchi, wheezing or rales noted. HEART: Regular rate and rhythm. ABDOMEN: Soft, non-tender. Positive bowel sounds. EXTREMITIES: Without any edema. NEUROLOGIC: She is alert and oriented times three. LABORATORY: White count now is normalized at 10,300, down from 14,900. Hemoglobin 12.4, hematocrit 37.2, platelet count 133,000. Differential does continue to show a left shift. Chemistries show a mildly low potassium at 3.2 with BUN 8, creatinine 0.57, calcium 8.1. MICROBIOLOGY: Sputum culture is pending. Blood cultures are pending at negative 24 hours. RADIOLOGY: Chest x-ray two view shows no acute findings. No focal lung consolidations per radiology. ASSESSMENT: 1. Influenza like illness with influenza pneumonia and probably developing secondary bacterial pneumonia, likely Streptococcus pneumoniae with the patient being immunocompromised secondary to multiple myeloma. 2. Febrile illness, secondary to #1, now afebrile for 24 hours after treatment. 3. Leukocytosis, back to baseline secondary to #1 after initiation of antibiotics. 4. History of multiple myeloma, diagnosed in 2016, currently in remission, followed by Dr. Negron on corticosteroid therapy, antivirals and prophylactic antibiotics. 5. Osteoporosis. 6. Insomnia. 7. Dementia. 8. Chronic peripheral neuropathies. PLAN: Will plan to continue with antibiotics and antivirals to include Tamiflu tonight. If the patient is without a fever again for 24 hours and clinically is stable, will certainly discharge to continue with outpatient management. She will continue on aggressive pulmonary hygiene with q.i.d. DuoNeb treatments. She is on DVT prophylaxis as per protocol. Again, given that she is advanced in age with underlying immunocompromising disease to include multiple myeloma, certainly need to be more cautious in waiting at least another 24 hours to ensure that she remains afebrile prior to discharge. Until then will continue monitor and treat as needed. #[id number] [facility]
[2018-12-13] MEDS: PANTOPRAZOLE SODIUM IV 40 MG VIAL IV SCH (06:10)
[2018-12-13] MEDS: LEVOTHYROXINE SODIUM 0.075 MG TAB PO SCH (06:10)
[2018-12-13] MEDS ORDERED: SODIUM CHL 0.9% 50ML MIN-BAG+ 0 ML IVPB ONE (08:25)
[2018-12-13] MEDS ORDERED: SODIUM CHLORIDE 0.9% 250ML 250 ML ONE (08:25)
[2018-12-13] MEDS ORDERED: AZITHROMYCIN IV 500 MG VIAL IVPB ONE (08:25)
[2018-12-13] MEDS ORDERED: cefTRIAXone SODIUM 1 GM VIAL ONE (08:25)
[2018-12-13] MEDS: OSELTAMIVIR 75 MG CAP PO SCH (08:47)
[2018-12-13] MEDS: ACYCLOVIR 200 MG CAP PO SCH (08:47)
[2018-12-13] MEDS: BIFIDOBACTERIUM INFANTIS 4 MG CAP PO SCH (08:47)
[2018-12-13] MEDS: AZITHROMYCIN IV 500 MG in SODIUM CHLORIDE 0.9% 250ML 250 ML IVPB SCH (08:48)
[2018-12-13] MEDS: PSYLLIUM 0.52 GM PO SCH (08:58)
[2018-12-13] MEDS: IPRATROPIUM/ALBUTEROL 3 ML VIAL INH SCH ×2 (09:10→14:23)
[2018-12-13] MEDS: cefTRIAXone SODIUM 1 GM in SODIUM CHL 0.9% 50ML MIN-BAG+ 50 ML IVPB SCH (11:28)
[2018-12-13 11:55] VITALS: BP 127/81; TEMP 98.6; O2SAT 94
--- NOTE | 2018-12-23 15:58 | DS ---
SUPERVISING PHYSICIAN: Jonah Lopez MD ADMISSION DIAGNOSIS: 1. Influenza like illness with developing influenza pneumonia, probable secondary bacterial pneumonia with concerns for Streptococcus pneumoniae. 2. Febrile illness, secondary to #1. 3. Leukocytosis, secondary to #1. 4. History of multiple myeloma, diagnosed in 2016, currently in remission, followed by Dr. Negron on corticosteroid therapy. 5. Osteoporosis. 6. Chronic insomnia. 7. Dementia. 8. Chronic peripheral neuropathies. DISCHARGE DIAGNOSIS: 1. Influenza like illness with secondary bacterial pneumonia with cultures pending at time of admission with patient risk for pneumococcal pneumonia as the is immunocompromised secondary to multiple myeloma. 2. Febrile illness, secondary to #1, resolved. 3. Leukocytosis, back to baseline secondary to #1 after initiation of antibiotics. 4. History of multiple myeloma, diagnosed in 2016, currently in remission, followed by Dr. Negron on corticosteroid therapy, antivirals and prophylactic antibiotics. 5. Osteoporosis. 6. Insomnia. 7. Dementia. 8. Chronic peripheral neuropathies. REASON FOR HOSPITALIZATION: Ms. Parham is an 83-year-old female patient who presented to the Emergency Room with her family members who reported she has been having fevers on and off for the last 3 days including cough and congestion that she notes has become purulent in nature. On the date of admission to the ER, the patient was having some acute mental status changes from her baseline. When the patient is at baseline, she actually does drive herself and has no decreased mental capacity. She notes that about a week ago on Sunday, she started having fever and several family members had tested positive for flu. She was not seen, but treated [id number] and symptoms resolved until this past Sunday when she started feeling a little worse and progressively on Sunday to today when the patient started having acute mental status changes and noted to have a fever. She had a workup in the Emergency Room. CBC showed a mild leukocytosis with a left shift. Chemistry was within normal limits. Urinalysis showed no evidence of a urinary tract infection. Vital signs in the Emergency Room did show she was running a fever of 102.8 initially on presentation. She was maintaining O2 saturations on 2 liters nasal cannula at 93%. Chest x-ray per radiologic interpretation was without any consolidative processes. The patient does have a history of multiple myeloma that is currently in remission. Given that she does have immunocompromising comorbidities including multiple myeloma and the fact that she has been previously around family members with the patient flu, a flu swab was completed and initially found to be negative for A and B by PCR. Given the patient's comorbidities, high temperature and flu-like illness, there was a concern that the patient was developing influenza pneumonia or a possibly a secondary bacterial pneumonia process from previous upper respiratory infection. Dr. Bright, the Emergency Room physician, requested the patient be admitted for further treatment and evaluation. She was admitted in stable condition. LABORATORY: White count on admission was 11,600 and went up to 14,900. By discharge, it was down to 10,300. Hemoglobin and hematocrit were stable at 12.4 and 37.2, respectively with platelet count 113,000 at discharge and differential showing a continued left shift on admission and at discharge. Discharge electrolytes showed potassium 3.3, sodium 137, BUN less than 5, creatinine 0.67. Liver functions all within normal limits on admission was within normal limits. MICROBIOLOGY: Sputum culture pending at discharge. Blood culture remained negative after 5 days. Influenza A and B by PCR was negative. RADIOLOGY: Initial chest x-ray in the Emergency Room prior to admission per radiologic interpretation was negative for lung consolidation. Final chest x- ray on 12/12/18, two-view, showed no acute findings, no focal lung consolidation. HOSPITAL COURSE: Ms. Parham was admitted on 12/11/18 with concerns for pneumococcal pneumonia secondary to previous influenza like illness. She was started on antivirals and antibiotics including azithromycin and Rocephin and Tamiflu. She was provided with aggressive pulmonary hygiene, DuoNeb breathing treatments. She showed good clinical improvement and on day of discharge was felt well enough to continue with outpatient management. PLAN: Ms. Parham was discharged on 12/13/18 with instructions to followup with Dr. Contreras in 7 days or sooner if needed. She was to resume her home medications as previously instructed. She as to wear a respiratory mask when out around large crowds to prevent exposure to further influenza infections. She was to increase her activity as tolerated. She was encouraged to return to the hospital should she have any concerning symptoms or worsening of her symptoms. Diet at discharge was regular diet as tolerated. Activity to increase as tolerated. Medications prescribed at discharge include: 1. Advair inhaler 1 puff inhaled q.4h. as needed, #1 inhaler, no refills. 2. Albuterol nebulizers 2.5 mg q.4h. as needed, #30, no refills. 3. Align 4 mg daily, no refills. 4. Cefdinir 300 mg twice daily, #10, no refills. 5. Tamiflu 75 mg twice daily, #10, no refills. CONDITION AT DISCHARGE: Stable and improving. DISPOSITION: the patient was discharged home. #[id number] [facility]
== END 2018-12-13 13:00 | disposition home or self-care (01) | DRG 194 ==
LOC: ER 21:14 → MS 12-11 01:40
PROVIDERS: ADMIT Nurse Practitioner Family; ATTEND Nurse Practitioner Family
DX: J11.00 Influenza due to unidentified influenza virus with unspecified type of pneumonia (principal); C90.01 Multiple myeloma in remission; J15.9 Unspecified bacterial pneumonia; M81.0 Age-related osteoporosis without current pathological fracture; G47.00 Insomnia, unspecified; F03.90 Unspecified dementia, unspecified severity, without behavioral disturbance, psychotic disturbance, mood disturbance, and anxiety; G62.9 Polyneuropathy, unspecified; E03.9 Hypothyroidism, unspecified; Z79.891 Long term (current) use of opiate analgesic; Z79.899 Other long term (current) drug therapy

== ENCOUNTER 2019-03-15 18:20 | Emergency (ER) | payer OTHER, MEDICARE ==
[2019-03-15 18:47] VITALS: TEMP 99.4
--- NOTE | 2019-03-15 19:30 | RAD ---
EXAM: Chest,1 View CLINICAL INDICATION: Altered mental status COMPARISON: 12/12/2018 FINDINGS: A single view of the chest was obtained. The heart size is normal. The pulmonary vascularity is unremarkable. The lungs are clear. There is no consolidation, infiltrate, pleural effusion, or pneumothorax. IMPRESSION: No evidence of active pulmonary disease. Electronically signed by: Griffin Metzger MD 03/15/2019 7:28 PM CDT
[2019-03-15] MEDS ORDERED: SODIUM CHLORIDE 0.9% 1000ML 1,000 ML IVS ONE (19:38)
--- NOTE | 2019-03-15 19:45 | ED.PDOC ---
History of Present Illness - General Chief Complaint: General Stated Complaint: fever, abdominal pain x2 days Time Seen by Provider: 03/15/19 18:45 Source: patient, family Exam Limitations: no limitations - History of Present Illness Initial Comments: Patient is an 83 yo F with multiple myeloma diagnosed three years ago and currently in remission for 6 months who presents with a temperature of 100.8 that occurred this morning. She also has had a non-productive cough for two days. The daughter says that the patient had diarrhea yesterday and may very well have had several loose bowel movements overnight. She does have a history of UTIs. The daughter says that the patient is not as talkative as usual and has been forgetting names today. No other complaints. Timing/Duration: 24 hours Severity: mild Improving Factors: nothing Associated Symptoms: other - as in HPI Allergies/Adverse Reactions: Allergies NO KNOWN ALLERGY Allergy (Verified 12/11/18 01:02) Home Medications: Ambulatory Orders Levothyroxine Sodium [Synthroid] 75 mcg PO DAILY@0630 01/11/15 Acyclovir [Zovirax] 400 mg PO BID 02/02/16 Dexamethasone 8 mg PO .Sunday02/02/16 DULoxetine HCL [Cymbalta] 20 mg PO BEDTIME 12/11/18 Gabapentin 300 mg PO 1700,2100 12/11/18 Morphine Sulfate 30 mg PO Q2H PRN 12/11/18 Non-Formulary Medication 1 capsule PO WKLY 12/11/18 Psyllium [Psyllium Fiber] 0.52 gm PO BID 12/11/18 Sulfamethoxazole-Trimethoprim [Bactrim Ds 800-160 mg] 1 tablet PO TUSA 12/11/18 Acetamin W/Cod #3 Tab [Tylenol w/CODEINE #3] 1 ea PO Q4H PRN 03/15/19 Cyanocobalamin [Vitamin B12] 1,000 mcg PO DAILY 03/15/19 Methocarbamol 500 mg PO QID PRN 03/15/19 Ondansetron [Ondansetron Odt] 8 mg PO Q8H PRN 03/15/19 Potassium Chloride [K-Tab] 20 meq PO DAILY 03/15/19 Sulfa/Trimeth 800/160 (Ds) Tab [Bactrim DS] 1 tablet PO BID #4 tab 03/15/19 Review of Systems - Review of Systems Constitutional: States: fever EENTM: States: no symptoms reported Respiratory: States: see HPI Cardiology: States: no symptoms reported Gastrointestinal/Abdominal: States: no symptoms reported Genitourinary: States: no symptoms reported Musculoskeletal: States: no symptoms reported Skin: States: no symptoms reported Neurological: States: no symptoms reported Endocrine: States: no symptoms reported Hematologic/Lymphatic: States: no symptoms reported Past Medical History (General) - Patient Medical History Hx Seizures: No Hx Stroke: No Hx Dementia: No Hx Asthma: No Hx of COPD: No Hx Cardiac Disorders: Yes - hx murmor Hx Congestive Heart Failure: No Hx Pacemaker: No Hx Hypertension: No Hx Thyroid Disease: Yes Hx Diabetes: Yes Hx Gastroesophageal Reflux: No Hx Renal Disease: No Hx Cancer: Yes - multiple myeloma Hx of HIV: No Hx Hepatitis C: No Hx MRSA: No Surgical History: appendectomy, other - Vaccination History Hx Influenza Vaccination: Yes Hx Pneumococcal Vaccination: Yes - Social History Hx Tobacco Use: No Hx Alcohol Use: No Hx Substance Use: No Hx Substance Use Treatment: No Hx Depression: No Hx Physical Abuse: No Hx Emotional Abuse: No - Female History Patient is a Female of Child Bearing Age (10 -59 yrs old): No Family Medical History - Family History Mother Family History: No Known Living Status: Hx Cardiac Disease: Yes - CAD-dad Hx Family Cancer: Yes - Brain-mom Sister Living Status: Hx Family Cancer: Yes - breast cancer Physical Exam - Physical Exam General Appearance: Alert Eye Exam: bilateral normal Ears, Nose, Throat: normal ENT inspection Neck: non-tender, full range of motion, supple Respiratory: lungs clear, normal breath sounds Cardiovascular/Chest: normal peripheral pulses, regular rate, rhythm Gastrointestinal/Abdominal: normal bowel sounds, non tender, soft Back Exam: normal inspection, no CVA tenderness Extremity: normal range of motion, non-tender, normal inspection Neurologic: no motor/sensory deficits, alert, normal mood/affect, oriented x 3 Skin Exam: normal color Lymphatic: no adenopathy Progress - Progress Progress: 03/15/19 21:35 Laboratory Tests 03/15/19 03/15/19 03/15/19 19:04 19:04 19:04 WBC 9.1 RBC 3.91 L Hgb 12.4 Hct 37.1 MCV 95.0 MCH 31.7 H MCHC 33.3 RDW 14.3 Plt Count 142 MPV 8.5 Absolute Neuts (auto) 6.60 Absolute Lymphs (auto) 1.50 Absolute Monos (auto) 0.80 Absolute Eos (auto) 0.20 Absolute Basos (auto) 0.00 Neutrophils % 72.7 Lymphocytes % 16.9 L Monocytes % 8.3 Eosinophils % 1.8 Basophils % 0.3 PT 10.0 INR 1.00 PTT (SP) 23.9 Sodium 136 Potassium 3.9 Chloride 101 Carbon Dioxide 27 Anion Gap 11.9 L BUN 8 Creatinine 0.56 L BUN/Creatinine Ratio 14.3 POC Glucose Random Glucose 128 H Serum Osmolality 271.9 L Lactic Acid Calcium 9.0 Magnesium 1.8 Total Bilirubin 0.6 AST 27 ALT 21 Alkaline Phosphatase 42 Creatine Kinase 29 CK-MB (CK-2) 1.3 CK-MB (CK-2) % Not Reportable Troponin I < 0.02 B-Natriuretic Peptide 15.0 Serum Total Protein 7.1 Albumin 3.2 Globulin 3.9 H Albumin/Globulin Ratio 0.8 L Lipase TSH Thyroxine (T4) Urine Color Urine Appearance Urine pH Ur Specific [place] Urine Protein Urine Glucose (UA) Urine Ketones Urine Blood Urine Nitrite Urine Bilirubin Urine Urobilinogen Ur Leukocyte Esterase Urine RBC Urine WBC Ur Epithelial Cells Urine Bacteria Group A Strep Rapid 03/15/19 03/15/19 03/15/19 19:05 19:06 19:06 WBC RBC Hgb Hct MCV MCH MCHC RDW Plt Count MPV Absolute Neuts (auto) Absolute Lymphs (auto) Absolute Monos (auto) Absolute Eos (auto) Absolute Basos (auto) Neutrophils % Lymphocytes % Monocytes % Eosinophils % Basophils % PT INR PTT (SP) Sodium Potassium Chloride Carbon Dioxide Anion Gap BUN Creatinine BUN/Creatinine Ratio POC Glucose 125 H Random Glucose Serum Osmolality Lactic Acid Calcium Magnesium Total Bilirubin AST ALT Alkaline Phosphatase Creatine Kinase CK-MB (CK-2) CK-MB (CK-2) % Troponin I B-Natriuretic Peptide Serum Total Protein Albumin Globulin Albumin/Globulin Ratio Lipase 33 TSH 1.81 Thyroxine (T4) 6.90 Urine Color Urine Appearance Urine pH Ur Specific [place] Urine Protein Urine Glucose (UA) Urine Ketones Urine Blood Urine Nitrite Urine Bilirubin Urine Urobilinogen Ur Leukocyte Esterase Urine RBC Urine WBC Ur Epithelial Cells Urine Bacteria Group A Strep Rapid 03/15/19 03/15/19 03/15/19 19:19 19:38 20:20 WBC RBC Hgb Hct MCV MCH MCHC RDW Plt Count MPV Absolute Neuts (auto) Absolute Lymphs (auto) Absolute Monos (auto) Absolute Eos (auto) Absolute Basos (auto) Neutrophils % Lymphocytes % Monocytes % Eosinophils % Basophils % PT INR PTT (SP) Sodium Potassium Chloride Carbon Dioxide Anion Gap BUN Creatinine BUN/Creatinine Ratio POC Glucose Random Glucose Serum Osmolality Lactic Acid 0.9 Calcium Magnesium Total Bilirubin AST ALT Alkaline Phosphatase Creatine Kinase CK-MB (CK-2) CK-MB (CK-2) % Troponin I B-Natriuretic Peptide Serum Total Protein Albumin Globulin Albumin/Globulin Ratio Lipase TSH Thyroxine (T4) Urine Color Yellow Urine Appearance Clear Urine pH 6.5 Ur Specific [place] 1.015 Urine Protein Negative Urine Glucose (UA) Negative Urine Ketones Negative Urine Blood Negative Urine Nitrite Negative Urine Bilirubin Negative Urine Urobilinogen 0.2 Ur Leukocyte Esterase Small H Urine RBC 0-1 Urine WBC 5-10 H Ur Epithelial Cells 0 Urine Bacteria 1+ Group A Strep Rapid Negative No laboratory nor radiological explanation for the AMS. After some fluid, the daughter said that the patient was acting at her baseline. It was mutually decided between myself, the patient, and the daughter to no proceed with a CT scan due to her normal neurological exam and return to baseline. She had a mild UTI and was given Bactrim DS po x one with two more days RX. Care instructions given. E.R. warnings given. Questions were elicited and answered. Patient and her daughter voiced understanding and agreement with the plan. Departure - Departure Clinical Impression: Generally unwell, Upper respiratory infection Disposition: Discharge to Home or Self Care Condition: Good Departure Forms: ED Discharge - Pt. Copy, Patient Portal Self Enrollment Diet: resume usual diet Activity: increase activity as tolerated Referrals: Aleksey Contreras MD [Primary Care Provider] - 1-2 Weeks Prescriptions: Sulfa/Trimeth 800/160 (Ds) Tab [Bactrim DS] 1 tablet PO BID #4 tab Home Medications: Ambulatory Orders Levothyroxine Sodium [Synthroid] 75 mcg PO DAILY@0630 01/11/15 Acyclovir [Zovirax] 400 mg PO BID 02/02/16 Dexamethasone 8 mg PO .Sunday02/02/16 DULoxetine HCL [Cymbalta] 20 mg PO BEDTIME 12/11/18 Gabapentin 300 mg PO 1700,2100 12/11/18 Morphine Sulfate 30 mg PO Q2H PRN 12/11/18 Non-Formulary Medication 1 capsule PO WKLY 12/11/18 Psyllium [Psyllium Fiber] 0.52 gm PO BID 12/11/18 Sulfamethoxazole-Trimethoprim [Bactrim Ds 800-160 mg] 1 tablet PO TUSA 12/11/18 Acetamin W/Cod #3 Tab [Tylenol w/CODEINE #3] 1 ea PO Q4H PRN 03/15/19 Cyanocobalamin [Vitamin B12] 1,000 mcg PO DAILY 03/15/19 Methocarbamol 500 mg PO QID PRN 03/15/19 Ondansetron [Ondansetron Odt] 8 mg PO Q8H PRN 03/15/19 Potassium Chloride [K-Tab] 20 meq PO DAILY 03/15/19 Sulfa/Trimeth 800/160 (Ds) Tab [Bactrim DS] 1 tablet PO BID #4 tab 03/15/19 Additional Instructions: Increase oral fluids. Take medications as prescribed. Return to the E.R. for shortness of breath or if the patient's temperature is above 100.3 on Sunday or afterwards.
[2019-03-15] MEDS ORDERED: SULFA/TRIMETH 800/160 (DS) TAB 1 EA TAB PO ONE (20:56)
[2019-03-15 21:09] VITALS: BP 142/65; O2SAT 97
== END 2019-03-15 21:57 | disposition home or self-care (01) ==
LOC: ER 18:20
DX: J06.9 Acute upper respiratory infection, unspecified (principal); N39.0 Urinary tract infection, site not specified; C90.01 Multiple myeloma in remission; E11.9 Type 2 diabetes mellitus without complications; E07.9 Disorder of thyroid, unspecified; Z79.899 Other long term (current) drug therapy; Z87.440 Personal history of urinary (tract) infections
CPT/HCPCS: 36415; 71045; 80053; 81001; 82550; 82553; 82948; 83605; 83690; 83735; 83880; 84436; 84443; 84484; 85025; 85610; 85730; 87070; 87086; 87502; 87880; 93005; J7030

== ENCOUNTER → 2019-09-23 | Outpatient (CLI) | payer OTHER | END | disposition home or self-care (01) | LOC: GMAJ 15:05 | PROVIDERS: ATTEND Family Medicine | DX: E03.8 Other specified hypothyroidism (principal) ==

== ENCOUNTER 2020-01-01 11:33 | Inpatient (IN) | payer MEDICARE, OTHER ==
[2020-01-01] MEDS ORDERED: ACETAMINOPHEN 500 MG TAB PO ONE (11:44)
[2020-01-01] MEDS ORDERED: SODIUM CHLORIDE 0.9% (FLUSH) 10 ML SYG IV PRN ×2 (11:44→15:35)
[2020-01-01] MEDS ORDERED: IPRATROPIUM/ALBUTEROL 3 ML VIAL NEB ONE (11:52)
[2020-01-01] MEDS ORDERED: SODIUM CHLORIDE 0.9% 1000ML 500 ML IVS ONE (11:55)
--- NOTE | 2020-01-01 12:00 | ED.PDOC ---
History of Present Illness - General Chief Complaint: General Stated Complaint: weakness, flu and strep Time Seen by Provider: 01/01/20 11:44 Additional Information: The patient is an 84 year old with past medical history significant for multiple myeloma (in remission), hypothyroidism, recurrent UTI who presents to the ED with family for generalized weakness. The patient and her family state that she has had an upper respiratory tract infection/symptoms for the past week including cough, sore throat, chills. She denies fever, vomiting, diarrhea. She was seen yesterday at the urgent care where she tested positive for flu A and strep. She was given outpatient prescription but did not fill them yet. This morning she was generally weak and unable to walk so she was brought to the Emergency Department for further management. - History of Present Illness Allergies/Adverse Reactions: Allergies NO KNOWN ALLERGY Allergy (Verified 01/01/20 11:57) Home Medications: Ambulatory Orders Levothyroxine Sodium [Synthroid] 75 mcg PO DAILY@0630 01/11/15 Acyclovir [Zovirax] 400 mg PO BID 02/02/16 Dexamethasone 8 mg PO .Sunday02/02/16 DULoxetine HCL [Cymbalta] 20 mg PO BEDTIME 12/11/18 Gabapentin 300 mg PO 1700,2100 12/11/18 Morphine Sulfate 30 mg PO Q2H PRN 12/11/18 Psyllium [Psyllium Fiber] 0.52 gm PO BID 12/11/18 Sulfamethoxazole-Trimethoprim [Bactrim Ds 800-160 mg] 1 tablet PO TUSA 12/11/18 Acetamin W/Cod #3 Tab [Tylenol w/CODEINE #3] 1 ea PO Q4H PRN 03/15/19 Cyanocobalamin [Vitamin B12] 1,000 mcg PO DAILY 03/15/19 Ondansetron [Ondansetron Odt] 8 mg PO Q8H PRN 03/15/19 Cefepime [Maxipime] 2 gm IV ONCE #1 vial 01/01/20 Review of Systems - Review of Systems Constitutional: States: chills, fever, malaise, weakness EENTM: States: nose congestion, throat pain Respiratory: States: cough, short of breath, wheezing Cardiology: Denies: chest pain, palpitations Gastrointestinal/Abdominal: Denies: abdominal pain, diarrhea, nausea, vomiting Genitourinary: States: no symptoms reported Musculoskeletal: States: no symptoms reported Skin: States: no symptoms reported Neurological: States: no symptoms reported All other Systems: Reviewed and Negative Past Medical History (General) - Patient Medical History Hx Seizures: No Hx Stroke: No Hx Dementia: No Hx Asthma: No Hx of COPD: No Hx Cardiac Disorders: Yes - hx murmor Hx Congestive Heart Failure: No Hx Pacemaker: No Hx Hypertension: No Hx Thyroid Disease: Yes Hx Diabetes: Yes Hx Gastroesophageal Reflux: No Hx Renal Disease: No Hx Cancer: Yes - multiple myeloma Hx of HIV: No Hx Hepatitis C: No Hx MRSA: No Surgical History: appendectomy - Vaccination History Hx Tetanus, Diphtheria Vaccination: No Hx Influenza Vaccination: Yes Hx Pneumococcal Vaccination: Yes - Social History Hx Tobacco Use: No Hx Alcohol Use: No Hx Substance Use: No Hx Substance Use Treatment: No Hx Depression: No Hx Physical Abuse: No Hx Emotional Abuse: No - Female History Patient is a Female of Child Bearing Age (10 -59 yrs old): No Family Medical History - Family History Mother Family History: No Known Living Status: Hx Cardiac Disease: Yes - CAD-dad Hx Family Cancer: Yes - Brain-mom Sister Living Status: Hx Family Cancer: Yes - breast cancer Physical Exam - Physical Exam General Appearance: No apparent distress Ears, Nose, Throat: normal ENT inspection, normal pharynx Neck: non-tender, full range of motion, supple, normal inspection Respiratory: chest non-tender, rales, wheezing - expiratory Cardiovascular/Chest: tachycardia Gastrointestinal/Abdominal: normal bowel sounds, non tender, soft, no organomegaly Rectal Exam: deferred Neurologic: no motor/sensory deficits, alert, normal mood/affect, oriented x 3 Skin Exam: normal color Progress - Progress Progress: 01/01/20 12:43 Labs reviewed, patient meets sepsis criteria, SIRS positive with evidence of pneumonia. Started on empiric vancomycin, cefepime and tamiflu. Remainder of workup is pending. 01/01/20 13:12 Discussed with Lacie Martin, will admit for flu, pneumonia and sepsis. patient and family updated. - Results/Orders Results/Orders: 01/01/20 11:44 IV Care:Saline Lock per Protoc QSHIFT Telemetry .ONCE Sodium Chloride 0.9% (Flush) [Saline Flush Syringe] 10 ml IV PRN PRN EKG Stat Pulse Ox Stat URINALYSIS Stat 01/01/20 12:04 BLOOD CULTURE Stat 01/01/20 12:41 Vancomycin HCl Inj 1,000 mg Sodium Chloride 0.9% 250Ml [NS 250ml] 250 ml IVPB ONCE 01/01/20 13:15 ED Intent to Admit Routine 01/01/20 13:45 LACTIC ACID Q2H 01/01/20 Lunch Regular Diet Laboratory Results - last 24 hr 01/01/20 01/01/20 01/01/20 12:04 12:04 12:04 WBC 20.0 H RBC 4.71 Hgb 14.4 Hct 43.5 MCV 92.4 MCH 30.6 MCHC 33.1 RDW 16.5 H Plt Count 160 MPV 8.6 Absolute Neuts (auto) Not Reportable Absolute Lymphs (auto) Not Reportable Absolute Monos (auto) Not Reportable Absolute Eos (auto) Not Reportable Neutrophils % Not Reportable Neutrophils % (Manual) 82.0 H Lymphocytes % Not Reportable Lymphocytes % (Manual) 9.0 Monocytes % Not Reportable Monocytes % (Manual) 2.0 Eosinophils % Not Reportable Basophils % Not Reportable Band Neutrophils 7.0 H Platelet Estimate Normal Normal RBC Morphology Normal rbc morph PT 10.5 INR 1.06 PTT (SP) 21.4 L Sodium 139 Potassium 4.5 Chloride 101 Carbon Dioxide 31 Anion Gap 11.5 L BUN 14 Creatinine 0.89 BUN/Creatinine Ratio 15.7 Random Glucose 172 H Serum Osmolality 282.1 Lactic Acid Calcium 9.3 Total Bilirubin 1.1 H AST 24 ALT 21 Alkaline Phosphatase 50 Creatine Kinase 33 CK-MB (CK-2) 1.0 CK-MB (CK-2) % Not Reportable Troponin I < 0.02 Serum Total Protein 7.0 Albumin 3.7 Globulin 3.3 Albumin/Globulin Ratio 1.1 01/01/20 12:04 WBC RBC Hgb Hct MCV MCH MCHC RDW Plt Count MPV Absolute Neuts (auto) Absolute Lymphs (auto) Absolute Monos (auto) Absolute Eos (auto) Neutrophils % Neutrophils % (Manual) Lymphocytes % Lymphocytes % (Manual) Monocytes % Monocytes % (Manual) Eosinophils % Basophils % Band Neutrophils Platelet Estimate Normal RBC Morphology PT INR PTT (SP) Sodium Potassium Chloride Carbon Dioxide Anion Gap BUN Creatinine BUN/Creatinine Ratio Random Glucose Serum Osmolality Lactic Acid 1.5 Calcium Total Bilirubin AST ALT Alkaline Phosphatase Creatine Kinase CK-MB (CK-2) CK-MB (CK-2) % Troponin I Serum Total Protein Albumin Globulin Albumin/Globulin Ratio - EKG/XRAY/CT Comments: 1150 sinus tachycardia at rate 121, normal axis, normal intervals, no STEMI Xray Comments: Right midlung interstitial infiltrate concerning for pneumonia Departure - Departure Clinical Impression: Influenza Pneumonia Qualifiers: Pneumonia type: due to unspecified organism Laterality: right Lung location: middle lobe of lung Qualified Code(s): J18.9 - Pneumonia, unspecified organism Time of Disposition: 13:15 Disposition: Admit Patient Condition: Fair Diet: resume usual diet Home Medications: Ambulatory Orders Levothyroxine Sodium [Synthroid] 75 mcg PO DAILY@0630 01/11/15 Acyclovir [Zovirax] 400 mg PO BID 02/02/16 Dexamethasone 8 mg PO .Sunday02/02/16 DULoxetine HCL [Cymbalta] 20 mg PO BEDTIME 12/11/18 Gabapentin 300 mg PO 1700,2100 12/11/18 Morphine Sulfate 30 mg PO Q2H PRN 12/11/18 Psyllium [Psyllium Fiber] 0.52 gm PO BID 12/11/18 Sulfamethoxazole-Trimethoprim [Bactrim Ds 800-160 mg] 1 tablet PO TUSA 12/11/18 Acetamin W/Cod #3 Tab [Tylenol w/CODEINE #3] 1 ea PO Q4H PRN 03/15/19 Cyanocobalamin [Vitamin B12] 1,000 mcg PO DAILY 03/15/19 Ondansetron [Ondansetron Odt] 8 mg PO Q8H PRN 03/15/19 Cefepime [Maxipime] 2 gm IV ONCE #1 vial 01/01/20 Decision To Admit - Decistion To Admit Decision to Admit Reason: Admit from ER Decision to Admit Date: 01/01/20 Decision to Admit Time: 13:15
[2020-01-01] MEDS ORDERED: CEFEPIME 2 GM in SODIUM CHL 0.9% 50ML MIN-BAG+ 50 ML IVPB ONE (12:31)
[2020-01-01] MEDS ORDERED: CEFEPIME 2 GM VIAL ONE ×2 (12:33→20:25)
[2020-01-01] MEDS ORDERED: SODIUM CHL 0.9% 50ML MIN-BAG+ 50 ML IVPB ONE ×2 (12:33→20:26)
--- NOTE | 2020-01-01 12:34 | RAD ---
EXAM DESCRIPTION: Chest, single view CLINICAL HISTORY: Cough and fever FINDINGS/ IMPRESSION: Comparison 03/15/2019 Normal cardiomediastinal silhouette. Coarsened interstitial markings in the right midlung, faint interstitial infiltrate which was not seen on the previous study. No alveolar consolidation. No pleural effusion No pneumothorax Deformity left posterior second rib and anterior right fourth rib. Diffuse osteopenia. No diagnostic acute bony abnormality Electronically signed by: Jonah Kahn MD 01/01/2020 12:32 PM [facility]
[2020-01-01] MEDS ORDERED: VANCOMYCIN HCL INJ 1,000 MG in SODIUM CHLORIDE 0.9% 250ML 250 ML IVPB ONE (12:41)
[2020-01-01] MEDS ORDERED: OSELTAMIVIR 75 MG CAP PO ONE (12:42)
[2020-01-01] MEDS ORDERED: VANCOMYCIN HCL INJ 1,000 MG VIAL IVPB ONE (12:49)
[2020-01-01] MEDS ORDERED: SODIUM CHLORIDE 0.9% 250ML 250 ML ONE (12:49)
--- NOTE | 2020-01-01 13:49 | HP ---
SUPERVISING PHYSICIAN: Aleksey Contreras MD HISTORY OF PRESENT ILLNESS: This is an 84-year-old female patient with a past history of multiple myeloma that is in remission. She came to the Emergency Room today with generalized weakness and feeling poorly all over. She had actually seen the nurse practitioner in Urgent Care yesterday and was diagnosed with Streptococcal pharyngitis as well as influenza type B. She was given Xofluza and and Pen Vee K, but was unable to pick it up. She also had upper respiratory type symptoms and actually she was at the Urgent Care yesterday and her WBCs were normal at 9.9 and her chemistries were basically unremarkable. Today in the Emergency Room, her initial vital signs were temperature 97.3, heart rate 118, blood pressure 113/64, respiratory rate 20, O2 saturation 92%. Labs were done and her WBCs were up to 20,000 with hemoglobin 14.4 and hematocrit 43.5. She has a left shift on her differential. Electrolytes were basically within normal limits, but her glucose was 172, lactic acid 1.2 and later was 1.4. She does have a slightly elevated bilirubin at 1.1, but the remainder of her liver enzymes were unremarkable. Blood cultures were drawn. Her chest x-ray per radiologic interpretation showed worsened interstitial markings in the right midlung, faint interstitial infiltrate that was not seen on previous study. No alveolar consolidation, no pleural effusion, no pneumothorax. Deformity of left posterior second right rib and anterior right fourth rib. Diffuse osteoporosis. No diagnostic acute bony abnormality. She was given cefepime and vancomycin in the Emergency Room as well as some Tamiflu and I was called for hospital admission. PAST MEDICAL HISTORY: 1. Multiple myeloma, in remission. 2. Hypothyroidism on supplementation. 3. Chronic anemia. 4. Osteoporosis. 5. Chronic insomnia. 6. Dementia. 7. Peripheral neuropathy. 8. Chronic pain syndrome. PAST SURGICAL HISTORY: 1. Carpal tunnel release. 2. Tubal ligation. 3. Right shoulder surgery. 4. Breast biopsy. 5. Appendectomy. 6. Bilateral cataract extraction. 7. Appendectomy. CURRENT MEDICATIONS: 1. Cyanocobalamin. 2. Zofran. 3. Acetaminophen with codeine #3. 4. Acyclovir. 5. Dexamethasone. 6. Donepezil. 7. Duloxetine. 8. Gabapentin. 9. Levothyroxine. 10. Myrbetriq. 11. Singulair. 12. Morphine sulfate. 13. Bactrim DS. ALLERGIES: NO KNOWN DRUG ALLERGIES. FAMILY HISTORY: Noncontributory. SOCIAL HISTORY: She lives in [place]. She is . She denies any tobacco, ETOH, or illicit drug use. REVIEW OF SYSTEMS: GENERAL: Positive for fever, fatigue and chills. Negative for weight changes. HEENT: Positive for nasal congestion as well as rhinorrhea, sore throat. Negative for vision changes or hearing problems. RESPIRATORY: Positive for coughing and some mild shortness of breath. Negative for wheezing. CARDIAC: Negative for chest pain, palpitations or tachycardia. GASTROINTESTINAL: Negative for nausea, vomiting, diarrhea, constipation. GENITOURINARY: Negative for hematuria, dysuria or polyuria. SKIN: Negative for lesions or rashes. NEUROLOGIC: Positive for weakness. Negative for headache or seizures. PHYSICAL EXAMINATION: VITAL SIGNS: Temperature 98.1. Heart rate 89. Blood pressure 106/92. Respiratory rate 20. O2 saturation 95% on 2 liters nasal cannula. GENERAL: This is an 84-year-old female patient who is lying in her hospital bed. She is in no acute distress. HEENT: Normocephalic, atraumatic. Pupils are equal and reactive. Oropharynx is clear. NECK: Supple without mass. There is no discernible jugular venous distention. RESPIRATORY: Slightly diminished breath sounds throughout with a few scattered rhonchi in the upper lobes, somewhat diminished at the bases. CHEST: There is equal rise and fall of the chest with inspiration and expiration. CARDIOVASCULAR: Regular rate and rhythm. GASTROINTESTINAL: Abdomen is soft, nondistended, nontender. Bowel sounds are positive. EXTREMITIES: No cyanosis, clubbing or edema. NEUROLOGIC: The patient is awake, alert and oriented times three. Cranial nerves II-XII are grossly intact as tested. LABORATORY: Labs and films are as per history of present illness. IMPRESSION: 1. Sepsis related to right sided pneumonia, most likely community acquired, with an admitting heart rate of 118 and WBC 20,000. 2. Influenza B. 3. Streptococcal pharyngitis. 4. History of multiple myeloma diagnosed in 2016. She is currently in remission. 5. Dementia. 6. Chronic peripheral neuropathy with chronic pain syndrome. PLAN: The patient has been admitted to the hospital. She has been started on the pneumonia guidelines and she will have aggressive pulmonary hygiene including nebulizer treatments, both p.r.n. and scheduled. I will continue her on cefepime and vancomycin. She has also been started on Tamiflu and I will start her home medications as soon as they are verified. I have given her Lovenox for DVT prophylaxis. Labs and x-ray have been ordered for in the morning. We will continue to monitor the patient closely and follow as needed. #[id number] [facility]
[2020-01-01] MEDS ORDERED: IPRATROPIUM/ALBUTEROL 3 ML VIAL INH PRN (15:35)
[2020-01-01] MEDS ORDERED: ACETAMINOPHEN 325 MG TAB PO PRN (15:35)
[2020-01-01] MEDS ORDERED: VANCOMYCIN PER PHARMACY IVPB SCH (16:00)
[2020-01-01] MEDS ORDERED: IV SET AND CAP CHANGE INJ INJ SCH (16:00)
[2020-01-01] MEDS: IPRATROPIUM/ALBUTEROL 3 ML VIAL INH SCH (20:35)
[2020-01-01] MEDS: ENOXAPARIN SODIUM 40 MG/0.4 ML SYG SUBCU SCH (20:52)
[2020-01-01] MEDS: SODIUM CHLORIDE 0.9% (FLUSH) 10 ML SYG IV SCH (20:53)
[2020-01-01] MEDS ORDERED: MORPHINE *IMMEDIATE RELEASE* 15 MG TAB PO PRN (22:17)
[2020-01-01] MEDS: OSELTAMIVIR 75 MG CAP PO SCH (22:30)
[2020-01-01] MEDS ORDERED: SODIUM CHLORIDE 0.45% 1000ML 1,000 ML IVS PRN (22:45)
[2020-01-02] MEDS: CEFEPIME 2 GM in SODIUM CHL 0.9% 50ML MIN-BAG+ 50 ML IVPB SCH ×2 (00:01→12:15)
[2020-01-02] MEDS ORDERED: PANTOPRAZOLE SODIUM IV 40 MG VIAL ONE (00:40)
[2020-01-02] MEDS: LEVOTHYROXINE SODIUM 0.075 MG TAB PO SCH (06:03)
[2020-01-02] MEDS ORDERED: PANTOPRAZOLE SODIUM IV 40 MG VIAL IV SCH (06:30)
--- NOTE | 2020-01-02 06:58 | RAD ---
Chest one view on 01/02/2020 CLINICAL INDICATION: Pneumonia COMPARISON: 01/01/2020 FINDINGS: Mild chronic interstitial changes are noted. The lungs are otherwise clear. Cardiac, hilar and mediastinal contours are within normal limits. Old rib fractures are noted. Suture anchors are noted in the right humeral head. IMPRESSION: No acute disease. Electronically signed by: Jaleel Tobin 01/02/2020 6:56 AM [facility]
[2020-01-02] MEDS: MONTELUKAST 10 MG TAB PO SCH (08:50)
[2020-01-02] MEDS: OSELTAMIVIR 75 MG CAP PO SCH (08:50)
[2020-01-02] MEDS: (Mirabegron [Myrbetriq] 50 MG) PO SCH (08:51)
[2020-01-02] MEDS: IPRATROPIUM/ALBUTEROL 3 ML VIAL INH SCH ×4 (09:00→21:11)
[2020-01-02] MEDS ORDERED: DEXAMETHASONE 4 MG TAB PO SCH (09:00)
[2020-01-02] MEDS ORDERED: ACYCLOVIR 400 MG PO SCH (09:00)
[2020-01-02] MEDS: SODIUM CHLORIDE 0.9% (FLUSH) 10 ML SYG IV SCH ×2 (09:02→20:57)
[2020-01-02] MEDS ORDERED: CEFEPIME 2 GM VIAL ONE (09:07)
[2020-01-02] MEDS ORDERED: SODIUM CHL 0.9% 50ML MIN-BAG+ 50 ML IVPB ONE (09:07)
[2020-01-02] MEDS: AZITHROMYCIN IV 500 MG in SODIUM CHLORIDE 0.9% 250ML 250 ML IVPB SCH (12:10)
[2020-01-02] MEDS ORDERED: POTASSIUM CHLORIDE ELIXIR 20 MEQ/15 ML UD PO ONE (12:29)
[2020-01-02] MEDS ORDERED: BALOXAVIR MARBOXIL 20 MG TAB PO SCH (12:30)
[2020-01-02] MEDS ORDERED: POTASSIUM CHLORIDE ELIXIR 20 MEQ/15 ML UD ONE (12:52)
[2020-01-02] MEDS: DONEPEZIL HCL 5 MG TAB PO SCH (12:58)
[2020-01-02] MEDS ORDERED: VANCOMYCIN HCL INJ 1,000 MG, VANCOMYCIN HCL INJ 250 MG in SODIUM CHLORIDE 0.9% 250ML 25... IVPB SCH (13:00)
[2020-01-02] MEDS: ACETAMINOPHEN W/COD #3 TAB 1 EA TAB PO PRN ×2 (13:07→18:28)
[2020-01-02] MEDS: KCL 20MEQ/0.45% NS 1,000 ML IVS PRN (13:07)
[2020-01-02] MEDS ORDERED: DEXAMETHASONE 4 MG TAB PO ONE (15:00)
[2020-01-02] MEDS ORDERED: DEXAMETHASONE 4 MG TAB ONE (18:26)
[2020-01-02] MEDS: GABAPENTIN 300 MG CAP PO SCH ×2 (18:29→20:57)
[2020-01-02] MEDS ORDERED: PANTOPRAZOLE SODIUM TAB 40 MG PO ONE (20:11)
[2020-01-02] MEDS ORDERED: MAGNESIUM SULFATE PREMIX 2GM 2 GM in PREMIX BAG 1 BAG IVPB ONE (20:20)
[2020-01-02] MEDS ORDERED: MAGNESIUM SULFATE PREMIX 2GM 50 ML IVPB ONE (20:31)
[2020-01-02] MEDS: ENOXAPARIN SODIUM 40 MG/0.4 ML SYG SUBCU SCH (20:57)
[2020-01-02] MEDS: ACYCLOVIR 200 MG CAP PO SCH (20:58)
[2020-01-02] MEDS ORDERED: DULoxetine HCL 20 MG CAP PO SCH (21:00)
[2020-01-03] MEDS: KCL 20MEQ/0.45% NS 1,000 ML IVS PRN (00:18)
[2020-01-03] MEDS: PANTOPRAZOLE SODIUM TAB 40 MG PO SCH (05:35)
[2020-01-03] MEDS: LEVOTHYROXINE SODIUM 0.075 MG TAB PO SCH (05:35)
[2020-01-03] MEDS: IPRATROPIUM/ALBUTEROL 3 ML VIAL INH SCH ×4 (08:56→20:20)
[2020-01-03] MEDS ORDERED: SULFA/TRIMETH 800/160 (DS) TAB 1 EA TAB PO SCH (09:00)
--- NOTE | 2020-01-03 09:25 | PN ---
SUPERVISING PHYSICIAN: Aleksey Contreras MD DATE: 01/02/20 SUBJECTIVE: The patient is still having a cough and some congestion and sore throat but no headaches, vision changes, nausea or vomiting or chest pain. Temperature 101.8 since midnight. OBJECTIVE: VITAL SIGNS: T-max 101.8, pulse 125, blood pressure 118/65, respirations 20, oxygen saturation 92% on room air. GENERAL: The patient appears unwell overall but does not appear to be in any acute distress. She is alert. CHEST: Lung sounds are diminished towards the bases with just a very faint rhonchi heard in the upper lobes, otherwise clear. HEART: Regular rate and rhythm. ABDOMEN: Soft, non-tender, bowel sounds are positives. EXTREMITIES: Without edema. NEUROLOGIC: Alert and oriented x 3. LABORATORY: White count down to 14,000, hemoglobin 11.4, hematocrit 34.7, platelet count 123,000, differential does show a left shift with bands resolved since yesterday. Chemistries show mild low potassium at 3.2, otherwise electrolytes are was negative. BUN 12, creatinine 0.53, calcium 7.9, magnesium low at 1.7, liver functions within normal limits. MICROBIOLOGY: Sputum culture pending. Gram stain pending. Blood cultures pending. RADIOLOGY: Chest x-ray repeated this morning and per radiology interpretation showed no obvious acute disease. ASSESSMENT: 1. Sepsis related to right sided pneumonia, likely community acquired, complicated by influenza B infection. 2. Influenza B infection. 3. Acute streptococcal pharyngitis. 4. History of multiple myeloma diagnosed in 2016. She is currently in remission. 5. Dementia. 6. Chronic peripheral neuropathy with chronic pain syndrome. PLAN: At this point, the patient appears to be pretty stable. I am going to go ahead and deescalate her antibiotics down from vancomycin and Cefepime to Rocephin and azithromycin. I have also changed her IV fluids to half normal saline with some potassium. Will go ahead and give her some oral potassium as well. She got a dose of Xofluza as well. I have discontinued her Tamiflu. Will plan to follow her labs in the morning. I anticipate at least another 24 to 48 hours hospitalization prior to admission given her past history and current underlying infectious process. Until them, we will continue to monitor and treat as needed. #[id number] [facility]
[2020-01-03] MEDS ORDERED: SODIUM CHL 0.9% 50ML MIN-BAG+ 50 ML IVPB ONE (09:28)
[2020-01-03] MEDS ORDERED: cefTRIAXone SODIUM 1 GM VIAL ONE (09:29)
[2020-01-03] MEDS: CYANOCOBALAMIN 1,000 MCG TAB PO SCH (09:52)
[2020-01-03] MEDS: (Mirabegron [Myrbetriq] 50 MG) PO SCH (09:52)
[2020-01-03] MEDS: ACYCLOVIR 200 MG CAP PO SCH ×2 (09:52→20:26)
[2020-01-03] MEDS: SODIUM CHLORIDE 0.9% (FLUSH) 10 ML SYG IV SCH ×2 (09:53→20:27)
[2020-01-03] MEDS: MONTELUKAST 10 MG TAB PO SCH (09:53)
[2020-01-03] MEDS: cefTRIAXone SODIUM 1 GM in SODIUM CHL 0.9% 50ML MIN-BAG+ 50 ML IVPB SCH (09:53)
[2020-01-03] MEDS ORDERED: SODIUM CHLORIDE 0.9% 250ML 250 ML ONE (12:11)
[2020-01-03] MEDS ORDERED: AZITHROMYCIN IV 500 MG VIAL IVPB ONE (12:11)
[2020-01-03] MEDS: AZITHROMYCIN IV 500 MG in SODIUM CHLORIDE 0.9% 250ML 250 ML IVPB SCH (12:18)
[2020-01-03] MEDS: DONEPEZIL HCL 5 MG TAB PO SCH (12:30)
--- NOTE | 2020-01-03 16:40 | PN ---
SUPERVISING PHYSICIAN: Aleksey Contreras MD DATE: 01/03/20 SUBJECTIVE: The patient is still having a cough but notes he feels a little bit better today. She is still significantly weakened in the lower extremities. We discussed we will get her up and insure that she is ambulating and able to return home safely. She still hasn't had physical therapy consultation which may have to wait until Sunday or if we can discharge tomorrow, discussed that we could get her home health provider to reassess her. . OBJECTIVE: VITAL SIGNS: Temperature 97.6, pulse 74, blood pressure 118/68, respirations 18, oxygen saturation 99% on nasal cannula. I&Os are showing to be well balanced. Nicole is at 56.3 kg. GENERAL: The patient is resting comfortably, she does appear ill in appearance but is in no acute distress and she is alert. . CHEST: Lung sounds continue with some faint rhonchi heard in the upper lobes, otherwise clear, just slightly diminished towards the bases. . HEART: Regular rate and rhythm. ABDOMEN: Soft, non-tender, bowel sounds are positives. EXTREMITIES: Without edema. NEUROLOGIC: Alert and oriented x 3. LABORATORY: White count now normalized at 7,200, hemoglobin 12.8, hematocrit 39.2, platelet count 139,000, differential shows continued left shift. Chemistries show normal electrolytes today with a BUN of 10, creatinine 0.62, calcium 8.4, magnesium normalized at 2.3. . RADIOLOGY: No additional radiographic studies. ASSESSMENT: 1. Sepsis related to right sided pneumonia, likely community acquired, complicated by influenza B infection. 2. Influenza B infection. 3. Acute streptococcal pharyngitis. 4. Electrolyte imbalance to include hypomagnesemia improved with IV fluids and replacement along with hypokalemia, returning to baseline levels. 5. History of multiple myeloma diagnosed in 2016. She is currently in remission. 6. Dementia. 7. Chronic peripheral neuropathy with chronic pain syndrome. PLAN: Will continue with current plan at this point with antibiotics since she has been changed to Rocephin and azithromycin. She has finished her anti-flu with Xofluza. She does remain on DVT prophylaxis per protocol. I anticipate that she will discharge tomorrow. Given that fact, we will go ahead and make sure she actually can function physically and we will have the nurse ambulate her to see how she does. If she is not able to go home, certainly we will get a physical therapy consultation on Sunday but if she is safe to go tomorrow she can have a physical therapy consultation through home health once discharged. Until then, we will continue to monitor and treat as needed. #[id number] [facility]
[2020-01-03] MEDS: GABAPENTIN 300 MG CAP PO SCH ×2 (17:25→20:26)
[2020-01-03] MEDS: ENOXAPARIN SODIUM 40 MG/0.4 ML SYG SUBCU SCH (20:26)
[2020-01-03] MEDS ORDERED: DULoxetine HCL 30 MG CAP PO SCH (21:00)
[2020-01-04] MEDS: LEVOTHYROXINE SODIUM 0.075 MG TAB PO SCH (06:12)
[2020-01-04] MEDS: PANTOPRAZOLE SODIUM TAB 40 MG PO SCH (06:12)
[2020-01-04] MEDS ORDERED: BENZOCAINE-MENTH LOZ (CEPACOL) 1 EA LOZ MT ONE (06:29)
[2020-01-04] MEDS ORDERED: BENZOCAINE-MENTH LOZ (CEPACOL) 1 EA LOZ MT PRN (06:31)
[2020-01-04] MEDS: ACETAMINOPHEN W/COD #3 TAB 1 EA TAB PO PRN (06:32)
[2020-01-04] MEDS ORDERED: SODIUM CHL 0.9% 50ML MIN-BAG+ 50 ML IVPB ONE (07:25)
[2020-01-04] MEDS ORDERED: cefTRIAXone SODIUM 1 GM VIAL ONE (07:25)
[2020-01-04] MEDS: cefTRIAXone SODIUM 1 GM in SODIUM CHL 0.9% 50ML MIN-BAG+ 50 ML IVPB SCH (08:36)
[2020-01-04] MEDS: SODIUM CHLORIDE 0.9% (FLUSH) 10 ML SYG IV SCH (08:37)
[2020-01-04] MEDS: CYANOCOBALAMIN 1,000 MCG TAB PO SCH (08:37)
[2020-01-04] MEDS: MONTELUKAST 10 MG TAB PO SCH (08:37)
[2020-01-04] MEDS: ACYCLOVIR 200 MG CAP PO SCH (08:37)
[2020-01-04] MEDS: (Mirabegron [Myrbetriq] 50 MG) PO SCH (08:45)
[2020-01-04] MEDS: IPRATROPIUM/ALBUTEROL 3 ML VIAL INH SCH ×2 (08:52→12:42)
[2020-01-04] MEDS ORDERED: SODIUM CHLORIDE 0.9% 250ML 250 ML ONE (10:51)
[2020-01-04] MEDS ORDERED: AZITHROMYCIN IV 500 MG VIAL IVPB ONE (10:52)
[2020-01-04] MEDS: DONEPEZIL HCL 5 MG TAB PO SCH (11:05)
[2020-01-04] MEDS: AZITHROMYCIN IV 500 MG in SODIUM CHLORIDE 0.9% 250ML 250 ML IVPB SCH (11:05)
[2020-01-04 11:07] VITALS: BP 117/75; TEMP 98.1
[2020-01-04 13:34] VITALS: O2SAT 99
[2020-01-09] MEDS ORDERED: DEXAMETHASONE 4 MG TAB PO SCH (15:00)
--- NOTE | 2020-01-27 13:56 | DS ---
SUPERVISING PHYSICIAN: Aleksey Contreras MD ADMISSION DIAGNOSIS: 1. Sepsis related to right sided pneumonia, most likely community acquired, with an admitting heart rate of 118 and WBC 20,000. 2. Influenza B. 3. Streptococcal pharyngitis. 4. History of multiple myeloma diagnosed in 2016. She is currently in remission. 5. Dementia. 6. Chronic peripheral neuropathy with chronic pain syndrome. DISCHARGE DIAGNOSIS: 1. Sepsis secondary to right sided pneumonia, community acquired, complicated by influenza B infection. 2. Influenza B infection. 3. Acute streptococcal pharyngitis. 4. Electrolyte imbalance to include hypomagnesemia improved with IV fluids and replacement along with hypokalemia, returning to baseline levels. 5. History of multiple myeloma diagnosed in 2016. She is currently in remission. 6. Dementia. 7. Chronic peripheral neuropathy with chronic pain syndrome. REASON FOR HOSPITALIZATION: This is an 84-year-old female patient with a past history of multiple myeloma that is in remission. She came to the Emergency Room today with generalized weakness and feeling poorly all over. She had actually seen the nurse practitioner in Urgent Care yesterday and was diagnosed with Streptococcal pharyngitis as well as influenza type B. She was given Xofluza and and Pen Vee K, but was unable to pick it up. She also had upper respiratory type symptoms and actually she was at the Urgent Care yesterday and her WBCs were normal at 9.9 and her chemistries were basically unremarkable. Today in the Emergency Room, her initial vital signs were temperature 97.3, heart rate 118, blood pressure 113/64, respiratory rate 20, O2 saturation 92%. Labs were done and her WBCs were up to 20,000 with hemoglobin 14.4 and hematocrit 43.5. She has a left shift on her differential. Electrolytes were basically within normal limits, but her glucose was 172, lactic acid 1.2 and later was 1.4. She does have a slightly elevated bilirubin at 1.1, but the remainder of her liver enzymes were unremarkable. Blood cultures were drawn. Her chest x-ray per radiologic interpretation showed worsened interstitial markings in the right midlung, faint interstitial infiltrate that was not seen on previous study. No alveolar consolidation, no pleural effusion, no pneumothorax. Deformity of left posterior second right rib and anterior right fourth rib. Diffuse osteoporosis. No diagnostic acute bony abnormality. She was given cefepime and vancomycin in the Emergency Room as well as some Tamiflu and I was called for hospital admission. LABORATORY: Initial white count was 20,000. At discharge, it was 7,200, hemoglobin 12.8, hematocrit 39.2, platelet count 139,00 and did show a left shift, but resolved with no bands. Coagulation studies showed normal PT, PTT. Chemistries showed normal electrolytes on discharge with BUN 10, creatinine 0.62. Normal anion gap of 9.2. Calcium 2.3, lactic acid 1.5 and 1.4. Urinalysis showed 100 glucose, trace amount of blood, otherwise within normal limits. MICROBIOLOGY: Blood cultures remain negative after 5 days. Final culture results of the sputum showed normal respiratory lizz. RADIOLOGY: Chest x-ray two days prior to discharge showed no acute disease. HOSPITAL COURSE: Ms. Parham was admitted and treated for both sepsis related to right sided pneumonia with influenza B infection and Streptococcal pharyngitis. She did show good improvement with antibiotic therapy as well as antivirals and aggressive pulmonary hygiene. Vital signs on discharge showed saturation 95% on room air with stable blood pressure of 117/75 and afebrile at 98.1 with pulse 88. She did show good response to treatment and it was felt she was stabilized well enough to continue with outpatient management. PLAN: Ms. Parham was discharged on 01/04/20 with instructions to followup with Dr. Contreras in one to two weeks as need or sooner, to call for an appointment. She was to resume home medications as instructed and return to the Emergency Department as needed. Diet was regular diet as tolerated. Activity to increase as tolerated. She was given warnings to return to the Emergency Department if she had any concerning symptoms. MEDICATIONS PRESCRIBED AT DISCHARGE: 1. Medrol Dosepak 4 mg take as directed. 2. Continue antibiotics with Bactrim, penicillin that was prescribed on discharge as well as she had finished treatment with a total course of azithromycin. CONDITION ON DISCHARGE: Stable and improved. DISPOSITION: The patient was discharged home. [facility][id number] [facility]
== END 2020-01-04 13:32 | disposition home or self-care (01) | DRG 871 ==
LOC: ER 11:33 → MS 13:47 → OBSVTOIN 13:47 → MS 14:31
PROVIDERS: ADMIT Nurse Practitioner Acute Care; ATTEND Nurse Practitioner Family
DX: A41.9 Sepsis, unspecified organism (principal); J10.00 Influenza due to other identified influenza virus with unspecified type of pneumonia; C90.01 Multiple myeloma in remission; E03.9 Hypothyroidism, unspecified; D64.9 Anemia, unspecified; M81.0 Age-related osteoporosis without current pathological fracture; G47.00 Insomnia, unspecified; F03.90 Unspecified dementia, unspecified severity, without behavioral disturbance, psychotic disturbance, mood disturbance, and anxiety; G62.9 Polyneuropathy, unspecified; G89.4 Chronic pain syndrome; J02.0 Streptococcal pharyngitis; E83.42 Hypomagnesemia; E87.6 Hypokalemia; Z87.440 Personal history of urinary (tract) infections; Z79.891 Long term (current) use of opiate analgesic; Z79.899 Other long term (current) drug therapy

== ENCOUNTER → 2020-08-02 | Outpatient (CLI) | payer MEDICARE | LOC: BFHOS 17:24 | PROVIDERS: ATTEND Family Medicine | DX: N39.0 Urinary tract infection, site not specified (principal) ==

== ENCOUNTER → 2020-08-14 | Outpatient (CLI) | payer MEDICARE | LOC: BFHOS 14:59 | PROVIDERS: ATTEND Family Medicine | DX: N39.0 Urinary tract infection, site not specified (principal) ==